=== PATIENT | female | born 1970 | race Caucasian/White ===

== ENCOUNTER 2018-11-03 15:07 | Inpatient (IN) ==
--- NOTE | 2018-11-03 15:20 | Emergency Department Note ---
Disposition Clinical Impression: Abscess of right upper extremity Postoperative infection Qualifiers: Encounter type: initial encounter Postoperative infection type: unspecified type Qualified Code(s): T81.40XA - Infection following a procedure, unspecified, initial encounter Disposition: Admitted As Inpatient Condition: Good Referrals: Zenon Baxter DO [Primary Care Provider] - Forms: ED Satisfaction Letter Time of Disposition: 17:06 General Adult HPI - General Chief complaint: ED Recheck/Abnormal Lab/Rx Stated complaint: RUE surgical complication Time Seen by Provider: 11/03/18 15:10 Source: patient Limitations: no limitations - History of Present Illness HPI Narrative: 49-year-old female with no significant past medical history status post pinning of a right elbow dislocation approximately 4 days ago by orthopedic surgery, discharged home on Levaquin, noting increased swelling and pain of her right upper extremity. Patient notes dark yellow exudate draining from the wound this morning. Patient called orthopedic surgeon was told to follow-up in the ER for further management. Onset (ago): day(s) Location: right, upper extremity Radiation: extremity Pain Scale: 7 Associated symptoms: Reports: denies other symptoms Treatments Prior to Arrival: other (Oxycodone for home use) - Related Data Home Medications Medication Instructions Recorded Confirmed FLUoxetine HCl [Prozac] 40 mg PO DAILY 10/24/17 10/25/18 Losartan/Hydrochlorothiazide 1 tab PO DAILY 10/03/18 10/25/18 [Losartan-Hctz 100-25 mg Tab] Pantoprazole Sodium [Protonix] 20 mg PO BID 10/03/18 10/25/18 Promethazine [Phenergan] 12.5 mg PO Q12HR PRN 10/03/18 10/25/18 Cyanocobalamin (B-12) [Vitamin B12] 1,000 mcg IM WE 10/18/18 10/25/18 Bifidobacterium Infantis [Align] 4 mg PO QAM 10/25/18 10/25/18 HYDROcodone/Acet 5/325 mg [[place] 1 tab PO Q4H PRN 10/25/18 10/25/18 5-325 mg] Norgestimate-Ethinyl Estradiol 1 tab PO DAILY 10/25/18 10/25/18 [Norg-Ee 0.18-0.215-0.25/0.035] levoFLOXacin [Levaquin] 500 mg PO DAILY 11/03/18 11/03/18 Allergies Allergy/AdvReac Type Severity Reaction Status Date / Time No Known Allergies Allergy Verified 10/25/18 11:34 Review of Systems: *See History of Present Illness for more detail Constitutional: Denies: fever, chills HEENT: Denies dysphagia/odynophagia, lymphadenopathy Cardiovascular: Denies: chest pain Respiratory: Denies: dyspnea, cough, hemoptysis Gastrointestinal: Denies: abdominal pain, nausea, vomiting, diarrhea, constipation, hematemesis, melena, hematochezia Genitourinary: Denies: hematuria Musculoskeletal: Denies: back pain, neck pain Integumentary: Denies: rash Neurological: Denies: headache, weakness, lightheadedness/dizziness, numbness, paresthesias, difficulty with ambulation. Endocrine: Denies: fatigue Hematological/Lymphatic: Denies: easy bleeding, easy bruising All systems ED: reviewed and negative except as stated. Review of Systems: As Per HPI Past Medical History - Past Medical History Medical history: Reports: GERD, hypertension Surgical history: Reports: cholecystectomy Psychiatric history: Reports: anxiety - Social History Smoking Status: Never smoker Smokeless Tobacco Status: No Alcohol use: Reports: occasionally Drug use: Reports: none Physical Exam Constitutional: No acute distress, [id number], engaged to conversation, speech is fluid, answers questions appropriately Neuro: GCS 15, no overt focal neurological deficits Head: Atraumatic, normocephalic Eyes: Pupils equal, round and reactive to light, no scleral icterus, no conjunctival injection Neck: Trachea midline without deviation. Anterior neck is supple without swelling. *Chest: Symmetric chest wall rise *Heart: Cardiac rhythm and rate are regular with S1 and S2 , no S3 or S4 appreciated, no murmurs, gallops, rubs, or clicks. *Lungs: Lungs are clear to auscultation bilaterally, without accessory muscle use or prolonged expiratory phase. No wheezes, rhonchi or stridor appreciated. Abdomen: Abdomen is flat, soft to palpation, normal bowel sounds. No abdominal bruit auscultated. Non-distended, non-rigid, no organomegaly, no ascites appreciated. No pulsatile mass, no tenderness or guarding to palpation in all four quadrants, no rebound Extremities: Normal capillary refill without evidence of pedal edema, joint swelling or erythema. Pulses/motor/sensory intact in all 4 extremities. Psychiatric exam: Patient displays a normal affect and mood for the environment. No overt signs of hallucination. Integumentary: warm, dry, intact, normal color. No rash, cyanosis, diaphoresis, erythema, or pallor - General Limitations: no limitations General appearance: alert, in no apparent distress Course Course Narrative: CBC, chemistry, lactate, wound culture, blood culture X-ray, CT scan upper right extremity IV fluids, oxycodone, very Zosyn for management of patient's condition Vital Signs Temperature 98.0 F 11/03/18 15:10 Pulse Rate 96 11/03/18 15:10 Respiratory Rate 16 11/03/18 15:10 Blood Pressure 105/70 11/03/18 15:10 O2 Sat by Pulse Oximetry 100 11/03/18 15:10 Temperature 98.0 F 11/03/18 15:10 Pulse Rate 96 11/03/18 15:10 Respiratory Rate 16 11/03/18 15:10 Blood Pressure 105/70 11/03/18 15:10 O2 Sat by Pulse Oximetry 100 11/03/18 15:10 Oxygen Delivery Oxygen Delivery Room Air Medical Decision Making - MDM Narrative Medical decision making narrative: Laboratory shows no acute pathology, imaging results consistent with a right upper extremity abscess beneath the incision site. Spoke with Dr. Bocanegra from orthopedic surgery who recommends inpatient admission to hospitalist medicine service with orthopedic consultation. Patient will be admitted to hospitalist medicine service for IV antibiotics and further evaluation of abscess formation status post open reduction and internal fixation. Patient verbalizes understanding and agreement this plan. Patient hemodynamically stable time of admission. Dr. Tabor accepting admission. - Lab Data Lab results reviewed: Yes I reviewed the patient's lab results. Result diagrams: 11/03/18 15:19 11/03/18 15:19 Lab Results 11/03/18 11/03/18 11/03/18 Range/Units 15:19 15:19 15:39 WBC 9.4 (4.3-11.1) K/mcL RBC 3.60 L (3.82-4.97) M/mcL Hgb 10.4 L (11.5-15.4) g/dL Hct 32.2 L (35.3-44.9) % MCV 89.4 (83.0-100.0) fL MCH 28.9 (28.0-33.3) pg MCHC 32.3 (31.6-35.5) g/dL RDW 14.5 (11.5-14.5) % Plt Count 313 (140-400) K/mcL MPV 8.8 L (9.4-12.4) fL Immature Gran % 0.4 (0-4) % Seg Neutrophils % 81.8 % Lymphocytes % 11.0 % Monocytes % 6.1 % Eosinophils % 0.5 % Basophils % 0.2 % Neutrophils # 7.7 (1.6-8.9) K/mcL Lymphocytes # 1.0 (0.6-4.6) K/mcL Monocytes # 0.6 (0.0-1.3) K/mcL Eosinophils # 0.1 (0.0-0.6) K/mcL Basophils # 0.0 (0.0-0.2) K/mcL Sodium 139 (136-145) mEq/L Potassium 3.1 L (3.5-5.1) mEq/L Chloride 98 (98-107) mEq/L Carbon Dioxide 28 (23-29) mEq/L BUN 12 (6-20) mg/dL Creatinine 0.70 (0.60-1.20) mg/dL Est GFR ( Amer) > 60 (> 60) Est GFR (Non-Af Amer) > 60 (> 60) BUN/Creatinine Ratio 17 (6-26) Glucose 111 H (70-105) mg/dL Calculated Osmolality 288 (280-300) Lactic Acid 1.2 (0.5-2.2) mmol/L Calcium 8.7 (8.6-10.3) mg/dL
[2018-11-03] MEDS ORDERED: 0.9 % Sodium Chloride 1,000 ML IVC ONE (15:27)
[2018-11-03] MEDS ORDERED: *HR* OxyCODONE/APAP 5/325 TABLET PO ONE (15:29)
[2018-11-03 15:52] LABS: Basophils % 0.2 %; Eosinophils # 0.1 K/mcL (0.0-0.6); Eosinophils % 0.5 %; Hematocrit 32.2 % (35.3-44.9); Hemoglobin 10.4 g/dL (11.5-15.4); Immature Granulocytes % 0.4 % (0-4); Mean Corpuscular HGB Conc 32.3 g/dL (31.6-35.5); Mean Corpuscular Hemoglobin 28.9 pg (28.0-33.3); Mean Corpuscular Volume 89.4 fL (83.0-100.0); Mean Platelet Volume 8.8 fL (9.4-12.4); Monocytes # 0.6 K/mcL (0.0-1.3); Monocytes % 6.1 %; Neutrophils # 7.7 K/mcL (1.6-8.9); Platelet Count 313 K/mcL (140-400); Red Cell Distribution Width 14.5 % (11.5-14.5); Segmented Neutrophils % 81.8 %; White Blood Count 9.4 K/mcL (4.3-11.1)
[2018-11-03] MEDS ORDERED: Piperacillin/Tazobactam 3.375 GM in 0.9 % Sodium Chloride Mini Bag 100 ML IVPB ONE (15:56)
[2018-11-03 16:12] LABS: BUN/Creatinine Ratio 17 (6-26); Blood Urea Nitrogen 12 mg/dL (6-20); Calcium 8.7 mg/dL (8.6-10.3); Carbon Dioxide 28 mEq/L (23-29); Chloride 98 mEq/L (98-107); Glucose 111 mg/dL (70-105); Osmolality,Calculated 288 (280-300); Potassium 3.1 mEq/L (3.5-5.1); Sodium 139 mEq/L (136-145); eGFR For African Americans > 60 (> 60); eGFR For Non-African Americans > 60 (> 60)
--- NOTE | 2018-11-03 17:09 | Emergency Department Note ---
Disposition Clinical Impression: Abscess of right upper extremity Postoperative infection Qualifiers: Encounter type: initial encounter Postoperative infection type: unspecified type Qualified Code(s): T81.40XA - Infection following a procedure, unspecified, initial encounter Disposition: Admitted As Inpatient Condition: Good Referrals: Zenon Baxter DO [Primary Care Provider] - Forms: ED Satisfaction Letter Time of Disposition: 17:09 General Adult HPI - General Chief complaint: ED Recheck/Abnormal Lab/Rx Stated complaint: RUE surgical complication Time Seen by Provider: 11/03/18 15:10 Source: patient Limitations: no limitations - History of Present Illness Location: right, upper extremity Pain Scale: 7 Associated symptoms: Reports: denies other symptoms Treatments Prior to Arrival: other (Oxycodone for home use) - Related Data Home Medications Medication Instructions Recorded Confirmed FLUoxetine HCl [Prozac] 40 mg PO DAILY 10/24/17 11/03/18 Losartan/Hydrochlorothiazide 1 tab PO DAILY 10/03/18 11/03/18 [Losartan-Hctz 100-25 mg Tab] Pantoprazole Sodium [Protonix] 20 mg PO BID 10/03/18 11/03/18 Promethazine [Phenergan] 12.5 mg PO Q12HR PRN 10/03/18 11/03/18 Cyanocobalamin (B-12) [Vitamin B12] 1,000 mcg IM WE 10/18/18 11/03/18 Bifidobacterium Infantis [Align] 4 mg PO QAM 10/25/18 11/03/18 HYDROcodone/Acet 5/325 mg [[place] 1 tab PO Q4H PRN 10/25/18 11/03/18 5-325 mg] Norgestimate-Ethinyl Estradiol 1 tab PO DAILY 10/25/18 11/03/18 [Norg-Ee 0.18-0.215-0.25/0.035] levoFLOXacin [Levaquin] 500 mg PO DAILY 11/03/18 11/03/18 Allergies Allergy/AdvReac Type Severity Reaction Status Date / Time No Known Allergies Allergy Verified 10/25/18 11:34 Past Medical History - Past Medical History Medical history: Reports: GERD, hypertension Surgical history: Reports: cholecystectomy Psychiatric history: Reports: anxiety - Social History Smoking Status: Never smoker Smokeless Tobacco Status: No Alcohol use: Reports: occasionally Drug use: Reports: none Physical Exam - General Limitations: no limitations General appearance: alert, in no apparent distress Course Vital Signs Temperature 98.0 F 11/03/18 15:10 Pulse Rate 96 11/03/18 15:10 Respiratory Rate 16 11/03/18 15:10 Blood Pressure 105/70 11/03/18 15:10 O2 Sat by Pulse Oximetry 100 11/03/18 15:10 Temperature 98.0 F 11/03/18 15:10 Pulse Rate 96 11/03/18 15:10 Respiratory Rate 16 11/03/18 15:10 Blood Pressure 105/70 11/03/18 15:10 O2 Sat by Pulse Oximetry 100 11/03/18 15:10 Oxygen Delivery Oxygen Delivery Room Air Medical Decision Making - Lab Data Result diagrams: 11/03/18 15:19 11/03/18 15:19 Lab Results 11/03/18 11/03/18 11/03/18 Range/Units 15:19 15:19 15:39 WBC 9.4 (4.3-11.1) K/mcL RBC 3.60 L (3.82-4.97) M/mcL Hgb 10.4 L (11.5-15.4) g/dL Hct 32.2 L (35.3-44.9) % MCV 89.4 (83.0-100.0) fL MCH 28.9 (28.0-33.3) pg MCHC 32.3 (31.6-35.5) g/dL RDW 14.5 (11.5-14.5) % Plt Count 313 (140-400) K/mcL MPV 8.8 L (9.4-12.4) fL Immature Gran % 0.4 (0-4) % Seg Neutrophils % 81.8 % Lymphocytes % 11.0 % Monocytes % 6.1 % Eosinophils % 0.5 % Basophils % 0.2 % Neutrophils # 7.7 (1.6-8.9) K/mcL Lymphocytes # 1.0 (0.6-4.6) K/mcL Monocytes # 0.6 (0.0-1.3) K/mcL Eosinophils # 0.1 (0.0-0.6) K/mcL Basophils # 0.0 (0.0-0.2) K/mcL Sodium 139 (136-145) mEq/L Potassium 3.1 L (3.5-5.1) mEq/L Chloride 98 (98-107) mEq/L Carbon Dioxide 28 (23-29) mEq/L BUN 12 (6-20) mg/dL Creatinine 0.70 (0.60-1.20) mg/dL Est GFR ( Amer) > 60 (> 60) Est GFR (Non-Af Amer) > 60 (> 60) BUN/Creatinine Ratio 17 (6-26) Glucose 111 H (70-105) mg/dL Calculated Osmolality 288 (280-300) Lactic Acid 1.2 (0.5-2.2) mmol/L Calcium 8.7 (8.6-10.3) mg/dL Attestation Statement - Attestation Attestation: I examined this patient and my medical decision-making was reviewed with the Resident Physician. I agree with the documented findings, disposition and treatment plan as described except to the extent set forth below. 47 year old female presents to the ED with complaints of right arm cellulitis s/p post srugical radial head reduction on 10/25. Patinet has bene on levaquin for the past day or so and patient states that the swelling is worsening and the drainage has increased. CT shows that there is a abscess formation verses cellulitis of hit ssubq tissue. We have othewrise discussed case with Dr. Huerta, [facility] consultant ortho, who has recommedned admission ot medicine with consutl to ortho. we have started vanco and zosyn for therapy, IVF and pain control.
[2018-11-03] MEDS ORDERED: Mag Hydrox/Al Hydrox/Simeth 30 ML UDC PO PRN (17:40)
[2018-11-03] MEDS ORDERED: Acetaminophen 325 MG TABLET PO PRN (17:40)
[2018-11-03] MEDS ORDERED: MOM Conc 10 ML UD.LIQ PO PRN (17:40)
[2018-11-03] MEDS ORDERED: *HR* Promethazine 25 MG/ML VIAL IVP PRN (17:40)
[2018-11-03] MEDS ORDERED: Ondansetron 4 MG/2 ML VIAL IVP PRN (17:40)
[2018-11-03] MEDS ORDERED: Naloxone 0.4 MG/ML INJ IVP PRN (17:40)
--- NOTE | 2018-11-03 17:48 | Internal Med History&Physical ---
Date of Encounter: 11/03/18 Time of Encounter: 17:45 Internal Medicine - H&P: HPI Admitted From: Home Plans for Post Hospital Care: Home History of present illness: Ms. Deng is a 47 year old female with past medical history of hypertension, depression, vitamin B12 deficiency, and recent right elbow trauma/fracture status post open reduction internal fixation presented with right upper arm swelling with yellowish drainage. She suffered a mechanical fall about 4 days ago which resulted in right arm fracture. She underwent an open reduction with internal fixation by orthopedic surgery and then was discharged home with oral antibiotics Levaquin. Patient noticed that her right elbow was getting progressively swelling and is starting to have yellowish drainage today, orthopedics was called by patient and his she was instructed to go to the ER for further evaluation. In the ER, patient vital signs were stable, she was afebrile, labs were unremarkable. A CT of right upper arm showed a possible abscess, she received IV Zosyn and vancomycin. She will be admitted as inpatient for further evaluation and management. CODE STATUS discussed with patient, she wishes to be full code. Past Med Surg Social Fam HX - Past Medical History Medical history: GERD, hypertension Psychiatric history: anxiety - Past Surgical History Surgical History: cholecystectomy Additional surgical history: cholangogram, right elbow surgery - Social History Smoking Status: Never smoker Smokeless Tobacco Status: No Alcohol use: occasionally Drug use: none Internal Medicine - H&P: Meds FLUoxetine HCl [Prozac] 40 mg PO DAILY 10/24/17 [History] Losartan/Hydrochlorothiazide [Losartan-Hctz 100-25 mg Tab] 1 tab PO DAILY 10/03/18 [History] Pantoprazole Sodium [Protonix] 20 mg PO BID 10/03/18 [History] Promethazine [Phenergan] 12.5 mg PO Q12HR PRN 10/03/18 [History] Cyanocobalamin (B-12) [Vitamin B12] 1,000 mcg IM WE 10/18/18 [History] Bifidobacterium Infantis [Align] 4 mg PO QAM 10/25/18 [History] HYDROcodone/Acet 5/325 mg [[place] 5-325 mg] 1 tab PO Q4H PRN 10/25/18 [History] Norgestimate-Ethinyl Estradiol [Norg-Ee 0.18-0.215-0.25/0.035] 1 tab PO DAILY 10/25/18 [History] levoFLOXacin [Levaquin] 500 mg PO DAILY 11/03/18 [History] Allergy/AdvReac Type Severity Reaction Status Date / Time No Known Allergies Allergy Verified 10/25/18 11:34 All Systems PM: A 10-system review of systems was performed and is negative for pertinent findings except as documented above in the HPI. Review of systems: REVIEW OF SYSTEMS: CONSTITUTIONAL: No weight loss, fever, chills, weakness or fatigue. HEENT: Eyes: No visual loss, blurred vision, double vision or yellow sclerae. Ears, Nose, Throat: No hearing loss, sneezing, congestion, runny nose or sore throat. SKIN: No rash or itching. CARDIOVASCULAR: No chest pain, chest pressure or chest discomfort. No palpitations or edema. RESPIRATORY: No shortness of breath, cough or sputum. GASTROINTESTINAL: No anorexia, nausea, vomiting or diarrhea. No abdominal pain or blood. GENITOURINARY: No dysuria, urgency, or frequency. NEUROLOGICAL: No headache, dizziness, syncope, paralysis, ataxia, numbness or tingling in the extremities. No change in bowel or bladder control. MUSCULOSKELETAL: see HPI. HEMATOLOGIC: No anemia, bleeding or bruising. LYMPHATICS: No enlarged nodes. No history of splenectomy. PSYCHIATRIC: No history of depression or anxiety. ENDOCRINOLOGIC: No reports of sweating, cold or heat intolerance. No polyuria or polydipsia. - Constitutional Vitals: Temp Pulse Resp BP Pulse Ox 98.3 F 84 20 113/74 97 11/03/18 17:08 11/03/18 17:08 11/03/18 17:08 11/03/18 17:08 11/03/18 17:08 General appearance: Present: A&O X 3 Exam: PHYSICAL EXAMINATION: GENERAL APPEARANCE: The patient is alert, oriented and in no acute distress. HEENT: Head is normocephalic. The sinuses are nontender. Pupils are equal and reactive. The nares are patent. Oropharynx clear without lesions. NECK: Supple without lymphadenopathy. HEART: Regular rate and rhythm. LUNGS: No crackles or wheezes are heard. ABDOMEN: Soft, nontender, nondistended with good bowel sounds heard. Inguinal area is normal. EXTREMITIES: right upper arm covered with dressing. NEUROLOGICAL: Gross nonfocal. SKIN: Warm and dry without any rash. Internal Med - H&P Results - Labs CBC & Chem 7: 11/03/18 15:19 11/03/18 15:19 Labs: Short CBC 11/03/18 Range/Units 15:19 WBC 9.4 (4.3-11.1) K/mcL Hgb 10.4 L (11.5-15.4) g/dL Hct 32.2 L (35.3-44.9) % Plt Count 313 (140-400) K/mcL Neutrophils # 7.7 (1.6-8.9) K/mcL BMP 11/03/18 15:19 Sodium 139 Potassium 3.1 L Chloride 98 Carbon Dioxide 28 BUN 12 Creatinine 0.70 Glucose 111 H Calcium 8.7 - Impressions ITS Impressions Elbow X-Ray 11/03/18 15:19 IMPRESSION: Soft tissue swelling without evidence of osteomyelitis, status post ORIF. D/ / Олег Bills MD / Олег Bills MD Interpreting Provider: Олег Bills MD Upper Extremity CT 11/03/18 15:28 IMPRESSION: 1. 11.9 x 3.5 x 2.4 cm area of confluent edema versus developing fluid collection in the posteromedial subcutaneous fat with an abscess not excluded. Adjacent fat stranding compatible cellulitis versus sterile edema. 2. Status post ORIF of the proximal ulna with a stabilization apparatus in the medial humeral condyle without complication. 3. Small osseous fragments in the anterior joint space. D/ / Zuhair Chowdary MD / Zuhair Chowdary MD Interpreting Provider: Zuhair Chowdary MD - Assessment and Plan (1) Abscess of right upper extremity Current Visit: Yes Status: Acute Assessment and plan: 47-year-old female with recent right upper arm, status post ORIF presented with right elbow abscess. Received IV Zosyn and vancomycin at the ED. Blood culture and wound culture were obtained. We will continue current antibiotics. Orthopedics consult. (2) Hypertension Current Visit: No Status: Chronic Assessment and plan: Blood pressure well controlled, continue home medication. Qualifiers: Hypertension type: essential hypertension Qualified Code(s): I10 - Essential (primary) hypertension (3) Depressed Current Visit: No Status: Chronic Assessment and plan: Mood stable, continue home medication. Qualifiers: Depression Type: unspecified Qualified Code(s): F32.9 - Major depressive disorder, single episode, unspecified (4) DVT prophylaxis Current Visit: Yes Status: Acute Assessment and plan: Heparin subcutaneous - Time Spent With Patient Total time spent is greater than 50% in coordination of care (as documented) at patient's floor/unit and/or counseling patient: Greater than 35 minutes
[2018-11-03] MEDS: *HR* Heparin 5,000 UNIT/ML VIAL SQ SCH (20:24)
[2018-11-03] MEDS: *HR* HYDROcodone/Acet 5/325 mg TABLET PO PRN (20:24)
[2018-11-03] MEDS: Piperacillin/Tazobactam 3.375 GM in 0.9 % Sodium Chloride Mini Bag 100 ML IVPB SCH (23:35)
[2018-11-04] MEDS: *HR* HYDROcodone/Acet 5/325 mg TABLET PO PRN ×4 (00:35→19:48)
[2018-11-04] MEDS: *HR* Heparin 5,000 UNIT/ML VIAL SQ SCH ×2 (06:11→16:06)
[2018-11-04 06:19] LABS: Basophils % 0.2 %; Eosinophils # 0.1 K/mcL (0.0-0.6); Eosinophils % 0.8 %; Hemoglobin 10.6 g/dL (11.5-15.4); Immature Granulocytes % 0.3 % (0-4); Lymphocytes # 1.8 K/mcL (0.6-4.6); Mean Corpuscular HGB Conc 32.1 g/dL (31.6-35.5); Mean Corpuscular Hemoglobin 29.1 pg (28.0-33.3); Mean Corpuscular Volume 90.7 fL (83.0-100.0); Mean Platelet Volume 9.4 fL (9.4-12.4); Monocytes # 0.5 K/mcL (0.0-1.3); Monocytes % 6.2 %; Neutrophils # 6.3 K/mcL (1.6-8.9); Platelet Count 350 K/mcL (140-400); Red Blood Count 3.64 M/mcL (3.82-4.97); Red Cell Distribution Width 14.6 % (11.5-14.5); Segmented Neutrophils % 71.5 %; White Blood Count 8.8 K/mcL (4.3-11.1)
[2018-11-04 06:35] LABS: BUN/Creatinine Ratio 13 (6-26); Blood Urea Nitrogen 8 mg/dL (6-20); Calcium 8.4 mg/dL (8.6-10.3); Carbon Dioxide 27 mEq/L (23-29); Chloride 99 mEq/L (98-107); Glucose 96 mg/dL (70-105); Osmolality,Calculated 286 (280-300); Potassium 3.1 mEq/L (3.5-5.1); Sodium 139 mEq/L (136-145); eGFR For African Americans > 60 (> 60); eGFR For Non-African Americans > 60 (> 60)
[2018-11-04] MEDS: Piperacillin/Tazobactam 3.375 GM in 0.9 % Sodium Chloride Mini Bag 100 ML IVPB SCH ×2 (08:27→15:37)
[2018-11-04] MEDS: traMADol 50 MG TABLET PO PRN ×2 (08:36→15:37)
[2018-11-04] MEDS ORDERED: (Bifidobacterium Infantis [Align] 4 MG) PO SCH (09:00)
[2018-11-04] MEDS ORDERED: NON-FORMULARY MEDICATION 1 EACH EACH (Losartan/Hydrochlorothiazide [Losartan-Hctz 100-25 M PO SCH (09:00)
[2018-11-04] MEDS ORDERED: Losartan/HCTZ 50-12.5 TABLET PO SCH (09:00)
[2018-11-04] MEDS ORDERED: NORGESTIMATE ETHINYL ESTRADIOL PO SCH (09:00)
[2018-11-04] MEDS ORDERED: FLUoxetine 20 MG CAPSULE PO SCH (09:00)
--- NOTE | 2018-11-04 10:52 | Internal Med Progress Note ---
Hospitalist Progress Note - Encounter Date of Encounter: 11/04/18 Time of Encounter: 10:49 - Subjective Interval History: Pt seen and examined in the room. Right arm still having large amount of yellowish drainage. No fever, chills, or night sweats. - Exam Vitals: Temp Pulse Resp BP Pulse Ox 98.6 F 88 16 134/85 97 11/04/18 07:03 11/04/18 07:03 11/04/18 07:03 11/04/18 07:03 11/04/18 07:03 Exam: PHYSICAL EXAMINATION: GENERAL APPEARANCE: The patient is alert, oriented and in no acute distress. HEENT: Head is normocephalic. The sinuses are nontender. Pupils are equal and reactive. The nares are patent. Oropharynx clear without lesions. NECK: Supple without lymphadenopathy. HEART: Regular rate and rhythm. LUNGS: No crackles or wheezes are heard. ABDOMEN: Soft, nontender, nondistended with good bowel sounds heard. Inguinal area is normal. EXTREMITIES: right upper arm covered with dressing. NEUROLOGICAL: Gross nonfocal. SKIN: Warm and dry without any rash. - Assessment and Plan (1) Abscess of right upper extremity Current Visit: Yes Status: Acute Assessment and Plan: 11/03 47-year-old female with recent right upper arm, status post ORIF presented with right elbow abscess. Received IV Zosyn and vancomycin at the ED. Blood culture and wound culture were obtained. We will continue current antibiotics. Orthopedics consult. 11/04 Wound cx pending. Doppler ot right arm no DVT. Continue IV abx with zosyn and vanco. Orthopedics following. (2) Hypertension Current Visit: No Status: Chronic Assessment and Plan: Blood pressure well controlled, continue home medication. (3) Depressed Current Visit: No Status: Chronic Assessment and Plan: Mood stable, continue home medication. (4) DVT prophylaxis Current Visit: Yes Status: Acute Assessment and Plan: Heparin subcutaneous - Time Spent with Patient Total time spent is greater than 50% in coordination of care (as documented) at patient's floor/unit and/or counseling patient: Greater than 35 minutes Plan of Care Discussed with: patient Internal Medicine: Result - Labs CBC & Chem 7: 11/04/18 05:26 11/04/18 05:26 Labs: Short CBC 11/03/18 11/04/18 Range/Units 15:19 05:26 WBC 9.4 8.8 (4.3-11.1) K/mcL Hgb 10.4 L 10.6 L (11.5-15.4) g/dL Hct 32.2 L 33.0 L (35.3-44.9) % Plt Count 313 350 (140-400) K/mcL Neutrophils # 7.7 6.3 (1.6-8.9) K/mcL BMP 11/03/18 11/04/18 15:19 05:26 Sodium 139 139 Potassium 3.1 L 3.1 L Chloride 98 99 Carbon Dioxide 28 27 BUN 12 8 Creatinine 0.70 0.64 Glucose 111 H 96 Calcium 8.7 8.4 L - Impressions Impressions Elbow X-Ray 11/03/18 15:19 IMPRESSION: Soft tissue swelling without evidence of osteomyelitis, status post ORIF. D/ / Олег Bills MD / Олег Bills MD Interpreting Provider: Олег Bills MD Upper Extremity CT 11/03/18 15:28 IMPRESSION: 1. 11.9 x 3.5 x 2.4 cm area of confluent edema versus developing fluid collection in the posteromedial subcutaneous fat with an abscess not excluded. Adjacent fat stranding compatible cellulitis versus sterile edema. 2. Status post ORIF of the proximal ulna with a stabilization apparatus in the medial humeral condyle without complication. 3. Small osseous fragments in the anterior joint space. D/ / Zuhair Chowdary MD / Zuhair Chowdary MD Interpreting Provider: Zuhair Chowdary MD Consult Discharge Plan - Plan Referrals: Zenon Baxter DO [Primary Care Provider] - (2) Hypertension Qualifiers: Hypertension type: essential hypertension Qualified Code(s): I10 - Essential (primary) hypertension (3) Depressed Qualifiers: Depression Type: unspecified Qualified Code(s): F32.9 - Major depressive disorder, single episode, unspecified
[2018-11-04 11:06] LABS: C-Reactive Protein 172 mg/L (Less than 10)
--- NOTE | 2018-11-04 13:04 | Orthopedic Consult Note ---
Date of Encounter: 11/04/18 Time of Encounter: 12:00 Assessment and Plan (1) Postoperative infection Current Visit: Yes Status: Acute Reviewed CT scan of elbow with Dr. Fall showing fluid collection to posterior elbow. Doppler negative for DVT. Plan for right elbow washout today 11/04/[address] Fall. I reviewed the procedure as well as r/b/a and she expressed understanding. consent was signed and given to patient's nurse. NPO now - she did eat breakfast around 9am and was drinking water through roughly 11:30. Reapplied dry gauze/abd dressings over incision until surgery. Continue IV abx per primary team. Ice and elevate RUE. Qualifiers: Encounter type: initial encounter Postoperative infection type: unspecified type Qualified Code(s): T81.40XA - Infection following a procedure, unspecified, initial encounter History of Present Illness Chief complaint: right elbow swelling and drainage HPI: Ms. Deng is a 47 year old female who is status post Right elbow open treatment of acute dislocation with repair of lateral ulnar collateral ligament, and application of hinged multiplanar external fixator"open treatment of acute dislocation with repair of lateral ulnar collateral ligament, and application of hinged multiplanar external fixator. 10/25/18. She was seen in the [facility] office on 11/01 and noted to have erythema to posterior elbow with swelling but no erythema directly surrounding the incision and no drainage at that time. She had labwork performed showing a normal WBC but elevated ESR/CRP. She was started on levoquin. Patient states that night she started to not feel well, felt a little better the next day but then was running a fever around 102 at home and then yesterday started to notice new drainage that was "thicker blood" at first and is now watery. Denies any pus drainage. She also developed a blister to elbow which she first noticed yesterday as well. She came to the ER last night and was admitted for IV abx. She denies any numbness or tingling to extremity. She has had nausea since surgery, no vomiting. Denies any chest pain or SOB. She is right hand dominant. She states she did eat breakfast around 9:00 am this morning and has last drink of water roughly 11:30am this morning. Past Med Surg Social Fam HX - Past Medical History Medical history: GERD, hypertension, other Additional medical history: dizziness, chronic nausea, Vitamin B12 deficiency Psychiatric history: anxiety, depression - Past Surgical History Surgical History: cholecystectomy Additional surgical history: cholangogram, right elbow surgery - Social History Smoking Status: Never smoker Smokeless Tobacco Status: No Alcohol use: occasionally Drug use: none Medications and Allergies FLUoxetine HCl [Prozac] 20 mg PO DAILY 10/24/17 [History] Losartan/Hydrochlorothiazide [Losartan-Hctz 100-25 mg Tab] 1 tab PO DAILY 10/03/18 [History] Pantoprazole Sodium [Protonix] 20 mg PO BID 10/03/18 [History] Promethazine [Phenergan] 12.5 mg PO Q12HR PRN 10/03/18 [History] Cyanocobalamin (B-12) [Vitamin B12] 1,000 mcg IM WE 10/18/18 [History] Bifidobacterium Infantis [Align] 4 mg PO QAM 10/25/18 [History] HYDROcodone/Acet 5/325 mg [[place] [facility] 5-325 mg] 1 tab PO Q4H PRN 10/25/18 [History] Norgestimate-Ethinyl Estradiol [Norg-Ee 0.18-0.215-0.25/0.035] 1 tab PO DAILY 10/25/18 [History] levoFLOXacin [Levaquin] 500 mg PO DAILY 11/03/18 [History] Hyoscyamine Sulfate 0.125 mg PO Q6H PRN 11/04/18 [History] Ibuprofen [Motrin] 600 mg PO Q6H PRN 11/04/18 [History] Oxycodone HCl 5 mg PO Q6H PRN 11/04/18 [History] Scopolamine Patch [Transderm-Scop] 1.5 mg TD Q72H PRN 11/04/18 [History] Allergy/AdvReac Type Severity Reaction Status Date / Time No Known Allergies Allergy Verified 11/04/18 16:48 All Systems Reviewed: The remainder of the systems were reviewed and are negative - Constitutional Constitutional: as per HPI - Cardiovascular Cardiovascular: as per HPI - Respiratory Respiratory: as per HPI - Musculoskeletal Musculoskeletal: as per HPI Physical Exam - Constitutional Vitals: Temp Pulse Resp BP Pulse Ox 98.4 F 79 17 131/84 97 11/04/18 11:48 11/04/18 11:48 11/04/18 11:48 11/04/18 11:48 11/04/18 11:48 - Elbow right Location of pain elbow: posterior (There is moderate erythema and swelling noted to the posterior and lateral elbow into forearm. Incision has zipline dressing intact with no gapping to incision, no active drainage but does appear wet. There is a fluid filled blister noted just posterior to the incision. moderate tenderness to palpation of the elbow. elbow ROM limited. full motion of hand, sensation intact distally) Results - Labs Result Diagrams: 11/04/18 05:26 11/04/18 05:26 Labs: Abnormal lab results RBC 3.64 M/mcL (3.82-4.97) L 11/04/18 05:26 Hgb 10.6 g/dL (11.5-15.4) L 11/04/18 05:26 Hct 33.0 % (35.3-44.9) L 11/04/18 05:26 RDW 14.6 % (11.5-14.5) H 11/04/18 05:26 MPV 8.8 fL (9.4-12.4) L 11/03/18 15:19 ESR 114 mm/hr (0-15) H 11/04/18 05:26 Potassium 3.1 mEq/L (3.5-5.1) L 11/04/18 05:26 Glucose 111 mg/dL (70-105) H 11/03/18 15:19 Calcium 8.4 mg/dL (8.6-10.3) L 11/04/18 05:26 172 mg/L (Less than 10) H 11/04/18 05:26 H & H 11/03/18 11/04/18 Range/Units 15:19 05:26 Hgb 10.4 L 10.6 L (11.5-15.4) g/dL Hct 32.2 L 33.0 L (35.3-44.9) % All other labs normal. - Diagnostic results Elbow CT: report reviewed, image reviewed Consult Discharge Plan - Plan Referrals: Zenon Baxter DO [Primary Care Provider] - - Attending Attestation Case and plan of care discussed with supervising physician, Dr. Fall, who was available for all aspects of care.
[2018-11-04] MEDS ORDERED: *HR* Propofol 200 MG/20 ML VIAL IVP ONE (17:16)
[2018-11-04] MEDS ORDERED: *HR* FentaNYL (PF) 100 MCG/2 ML VIAL ONE (17:16)
[2018-11-04] MEDS ORDERED: *HR* Midazolam HCl 2 MG/2 ML VIAL ONE (17:16)
[2018-11-04] MEDS ORDERED: *HR* Succinylcholine 200 MG/10 ML VIAL IVP ONE (17:19)
[2018-11-04] MEDS ORDERED: Lidocaine -MPF 2% 2 ML VIAL ONE (17:19)
--- NOTE | 2018-11-04 17:20 | Anesthesia Evaluation PreOp ---
Date of Encounter: 11/04/18 Time of Encounter: 17:18 - Past History Planned Operation: Right elbow I&D Cardiac History: HTN Pulmonary History: Denies Any Significant HX [employer] History: Denies Any Significant HX Other Medical History: GERD, Other (anxiety depression) Anesthesia History: No Prior Anesthetic Complications, Past Anesthesia Alcohol Use: occasionally Drug use: none Medications and Allergies FLUoxetine HCl [Prozac] 20 mg PO DAILY 10/24/17 [History] Losartan/Hydrochlorothiazide [Losartan-Hctz 100-25 mg Tab] 1 tab PO DAILY 10/03/18 [History] Pantoprazole Sodium [Protonix] 20 mg PO BID 10/03/18 [History] Promethazine [Phenergan] 12.5 mg PO Q12HR PRN 10/03/18 [History] Cyanocobalamin (B-12) [Vitamin B12] 1,000 mcg IM WE 10/18/18 [History] Bifidobacterium Infantis [Align] 4 mg PO QAM 10/25/18 [History] HYDROcodone/Acet 5/325 mg [[place] 5-325 mg] 1 tab PO Q4H PRN 10/25/18 [History] Norgestimate-Ethinyl Estradiol [Norg-Ee 0.18-0.215-0.25/0.035] 1 tab PO DAILY 10/25/18 [History] levoFLOXacin [Levaquin] 500 mg PO DAILY 11/03/18 [History] Hyoscyamine Sulfate 0.125 mg PO Q6H PRN 11/04/18 [History] Ibuprofen [Motrin] 600 mg PO Q6H PRN 11/04/18 [History] Oxycodone HCl 5 mg PO Q6H PRN 11/04/18 [History] Scopolamine Patch [Transderm-Scop] 1.5 mg TD Q72H PRN 11/04/18 [History] Allergy/AdvReac Type Severity Reaction Status Date / Time No Known Allergies Allergy Verified 11/04/18 16:48 - Meds/Allergy Pre-op Review Medications Reviewed: Yes Allergies Reviewed: Yes Beta Blockers on Current Med List: No Anesthesia Results - Labs 11/04/18 05:26 11/04/18 05:26 TEST PENDING Anesthesia Exam Vital Signs/O2 Sat, Most Current Temp Pulse Resp BP Pulse Ox 97.8 F 78 16 154/94 98 11/04/18 15:06 11/04/18 15:06 11/04/18 15:06 11/04/18 15:06 11/04/18 15:06 Weight: 88 kg - BMI 32 NPO (# of Hours): >8 - HEENT Mallampati: I Teeth: Normal - Cardiac Rhythm: Regular - Pulmonary Breath Sounds: bilateral Clear Anesthesia Assess/Plan ASA Score: 2 Anesthetic Plan: General Monitoring Plan: Standard Monitors Recovery Plan: PACU
[2018-11-04] MEDS ORDERED: *HR* Promethazine 25 MG/ML VIAL IVP PRN ×3 (18:18→21:12)
[2018-11-04] MEDS ORDERED: traMADol 50 MG TABLET PO PRN (18:18)
[2018-11-04] MEDS ORDERED: *HR* HYDROmorphone (PF) 1 MG/ML SYRINGE IVP PRN ×2 (18:18→21:12)
[2018-11-04] MEDS ORDERED: Albuterol 2.5 MG/3 ML NEBULIZER IH ONE ×2 (18:18→21:12)
[2018-11-04] MEDS ORDERED: Ondansetron 4 MG/2 ML VIAL IVP ONE ×2 (18:18→21:12)
[2018-11-04] MEDS ORDERED: Ketorolac 30 MG/ML VIAL IVP ONE ×2 (18:18→21:12)
[2018-11-04] MEDS ORDERED: *HR* Meperidine 25 MG/ML SYRINGE IVP PRN ×2 (18:18→21:12)
[2018-11-04] MEDS ORDERED: *HR* HYDROMORPHONE 2 MG/ML VIAL ONE (18:25)
[2018-11-04] MEDS ORDERED: Ethanol\\Acetic Acid\\Na Ace\\Ben 1,000 ML IRRIG.SOLN IR ONE (18:37)
--- NOTE | 2018-11-04 19:26 | Operative Note ---
Date of procedure: 11/04/18 Pre-op diagnosis: Right elbow postoperative wound abscess Post-op diagnosis: other (Right elbow postoperative wound hematoma with possible abscess formation) Procedure: Right elbow incision and drainage of postoperative wound Anesthesia: ANNITA Surgeon: Daniel Fall Was there an social service assistant present: No Estimated blood loss (cc): 50 Tourniquet Time (Minutes): 21 Specimen: Sent to microbiology Condition: stable Disposition: PACU Procedure in Detail: Indication for surgery. The patient underwent a reconstruction/unstable right elbow dislocation just over 1 week ago. The patient was having significant pain and swelling. The patient was now she started on Levaquin on Sunday, however: On Sunday elbow started draining. She was admitted through the emergency room last night. The patient has seepage from the incision. She was indicated for a formal I&D. Procedure: The patient was brought to the operating room and placed on table in supine position with the right upper extremity hand table. The patient underwent gene ral anesthesia. A tourniquet was placed on his right arm close to the axilla, and the right upper extremity was then prepped and draped in usual sterile fashion. A timeout was performed. The upper extremity was then elevated, exsanguinated with an Sunil wrap from the fingertips to the mid forearm, and the tourniquet was raised to pressure of 250 mmHg. The posterior lateral incision was opened with a hemostat. There was copious amount of fresh blood and hematoma within the wound. As I continued dissecting deeper, there was a small patch of dirty brown fluid. This could either be pus mixed with the blood or possibly necrotic fat. Cultures were taken for aerobic and anaerobic. The patient was administered IV vancomycin. The wound was copiously irrigated with normal saline. The hardware of the Internal Joint Stabilizer is intact and exposed. The fascia over the extensor common tendon and muscles was noted to be intact. There was no direct communication with the joint. After irrigated with normal saline. We then irrigated with Bactisure followed by normal saline. I then soaked the implants and Irrisept for 1 minute. The tourniquet was let down, and the wound irrigated once again with normal saline. There was continuous mild oozing. A Hemovac with 10-I[place]ic tubing was used. I placed 2 drain tubes exiting distally, and attaching to the one Hemovac bulb. Gelfoam and thrombin was used to stop the oozing. The skin was then closed with 3-0 nylon vertical mattress and simple sutures. Sterile dressings were applied. She was then extubated and taken to the [facility] room stable condition. The patient will continue on IV vancomycin until the deep cultures are back.
--- NOTE | 2018-11-04 19:57 | Anesthesia Evaluation Post Op ---
Date of Encounter: 11/04/18 Time of Encounter: 19:57 - Discharge PostOp Status: Transfer Patient to floor (Patient's vital signs have been reviewed. Patient is stable postoperatively and has adequately recovered from anesthesia. Patient is determined to have stable airway patency and respiratory function including respiratory rate and oxygen saturation. Patient has a stable heart rate, blood pressure and adequate hydration. Patients mental status is acceptable. Patients temperature is appropriate. Pain and nausea are adequately controlled.)
[2018-11-04] MEDS ORDERED: Lactobacillus 1 EACH CAP.SPRINK PO SCH (21:00)
[2018-11-04] MEDS ORDERED: MOM Conc 10 ML UD.LIQ PO PRN (21:12)
[2018-11-04] MEDS ORDERED: Mag Hydrox/Al Hydrox/Simeth 30 ML UDC PO PRN (21:12)
[2018-11-04] MEDS ORDERED: Naloxone 0.4 MG/ML INJ IVP PRN (21:12)
[2018-11-04] MEDS ORDERED: Acetaminophen 325 MG TABLET PO PRN (21:12)
[2018-11-05 05:01] LABS: Basophils % 0.5 %; Eosinophils # 0.1 K/mcL (0.0-0.6); Eosinophils % 1.6 %; Hematocrit 28.3 % (35.3-44.9); Hemoglobin 9.3 g/dL (11.5-15.4); Immature Granulocytes % 0.6 % (0-4); Lymphocytes # 1.4 K/mcL (0.6-4.6); Lymphocytes % 22.8 %; Mean Corpuscular HGB Conc 32.9 g/dL (31.6-35.5); Mean Corpuscular Hemoglobin 28.8 pg (28.0-33.3); Mean Corpuscular Volume 87.6 fL (83.0-100.0); Monocytes # 0.5 K/mcL (0.0-1.3); Monocytes % 7.8 %; Neutrophils # 4.2 K/mcL (1.6-8.9); Platelet Count 306 K/mcL (140-400); Red Blood Count 3.23 M/mcL (3.82-4.97); Red Cell Distribution Width 14.4 % (11.5-14.5); Segmented Neutrophils % 66.7 %; White Blood Count 6.3 K/mcL (4.3-11.1)
[2018-11-05 05:16] LABS: BUN/Creatinine Ratio 14 (6-26); Blood Urea Nitrogen 8 mg/dL (6-20); Calcium 8.2 mg/dL (8.6-10.3); Carbon Dioxide 26 mEq/L (23-29); Chloride 100 mEq/L (98-107); Glucose 93 mg/dL (70-105); Osmolality,Calculated 276 (280-300); Potassium 3.5 mEq/L (3.5-5.1); Sodium 134 mEq/L (136-145); eGFR For African Americans > 60 (> 60); eGFR For Non-African Americans > 60 (> 60)
[2018-11-05] MEDS: Losartan/HCTZ 50-12.5 TABLET PO SCH (08:54)
[2018-11-05] MEDS: NORGESTIMATE ETHINYL ESTRADIOL PO SCH (08:55)
[2018-11-05] MEDS: Lactobacillus 1 EACH CAP.SPRINK PO SCH ×2 (08:55→20:33)
--- NOTE | 2018-11-05 08:55 | Internal Med Progress Note ---
Hospitalist Progress Note - Encounter Date of Encounter: 11/05/18 Time of Encounter: 08:55 - Subjective Interval History: Patient was seen and examined at bedside currently states that pain is controlled-Hemovac in place and draining-discuss treatment plan including current antibiotics and pending wound culture results. - Exam Vitals: Temp Pulse Resp BP Pulse Ox 97.5 F L 75 18 141/79 100 11/05/18 07:37 11/05/18 07:37 11/05/18 07:37 11/05/18 07:37 11/05/18 07:37 Exam: PHYSICAL EXAMINATION: GENERAL APPEARANCE: The patient is alert, oriented and in no acute distress. HEENT: Head is normocephalic. The sinuses are nontender. Pupils are equal and reactive. The nares are patent. Oropharynx clear without lesions. NECK: Supple without lymphadenopathy. HEART: Regular rate and rhythm. LUNGS: No crackles or wheezes are heard. ABDOMEN: Soft, nontender, nondistended with good bowel sounds heard. Inguinal area is normal. EXTREMITIES: right upper arm covered with dressing. -Brisk capillary refill- extremities pink and warm NEUROLOGICAL: Gross nonfocal. SKIN: Warm and dry without any rash. - Assessment and Plan (1) Hypertension Current Visit: No Status: Chronic Assessment and Plan: Blood pressure well controlled, continue home medication. (2) DVT prophylaxis Current Visit: Yes Status: Acute Assessment and Plan: Heparin subcutaneous (3) Abscess of right upper extremity Current Visit: Yes Status: Acute Assessment and Plan: 11/03 47-year-old female with recent right upper arm, status post ORIF presented with right elbow abscess. Received IV Zosyn and vancomycin at the ED. Blood culture and wound culture were obtained. We will continue current antibiotics. Orthopedics consult. 11/04 Wound cx pending. Doppler ot right arm no DVT. Continue IV abx with zosyn and vanco. Orthopedics following. 11/05 Wound cultures pending at this time-continue with current IV antibiotics Zosyn and vancomycin Currently pain is controlled continue with current pain regime Continue to elevate extremity Orthopedic following and appreciate recommendations dressing changes per orthopedic recommendations (4) Depressed Current Visit: No Status: Chronic Assessment and Plan: Mood stable, continue home medication. - Time Spent with Patient Total time spent is greater than 50% in coordination of care (as documented) at patient's floor/unit and/or counseling patient: Internal Medicine: Result - Labs CBC & Chem 7: 11/05/18 04:34 11/05/18 04:34 Labs: Short CBC 11/05/18 Range/Units 04:34 WBC 6.3 (4.3-11.1) K/mcL Hgb 9.3 L (11.5-15.4) g/dL Hct 28.3 L (35.3-44.9) % Plt Count 306 (140-400) K/mcL Neutrophils # 4.2 (1.6-8.9) K/mcL BMP 11/04/18 11/05/18 05:26 04:34 Sodium 139 134 L Potassium 3.1 L 3.5 Chloride 99 100 Carbon Dioxide 27 26 BUN 8 8 Creatinine 0.64 0.56 L Glucose 96 93 Calcium 8.4 L 8.2 L Consult Discharge Plan - Plan Referrals: Zenon Baxter DO [Primary Care Provider] - (1) Hypertension Qualifiers: Hypertension type: essential hypertension Qualified Code(s): I10 - Essential (primary) hypertension (4) Depressed Qualifiers: Depression Type: unspecified Qualified Code(s): F32.9 - Major depressive disorder, single episode, unspecified
[2018-11-05] MEDS: *HR* HYDROcodone/Acet 5/325 mg TABLET PO PRN ×3 (08:59→22:27)
[2018-11-05] MEDS ORDERED: FLUoxetine 20 MG CAPSULE PO SCH (09:00)
[2018-11-05 09:23] LABS: C-Reactive Protein 108 mg/L (Less than 10)
[2018-11-05] MEDS: Ondansetron 4 MG/2 ML VIAL IVP PRN (13:13)
--- NOTE | 2018-11-05 17:19 | Orthopedics Progress Note ---
Date of Encounter: 11/05/18 Time of Encounter: 15:20 - Assessment and Plan (1) Postoperative infection Current Visit: Yes Status: Acute Leave postoperative dressings in place. Hemovac drain - minimal bloody drainage currently. documented 70mL removed toda y. Possibly remove tomorrow if drainage decreases Continue to elevate and ice as needed. Recommend PT/OT eval for ROM, continue NWB to RUE. Cx from ER show staph aureus, pending intraoperative wound cultures. Continue IV abx per primary team. Currently on vancomycin and zosyn 11/04: WBC 8.8, ESR 57, CRP 187 11/05: WBC 6.3, ESR 101, CRP 108 improving Continue to monitor overnight. Qualifiers: Encounter type: initial encounter Postoperative infection type: unspecified type Qualified Code(s): T81.40XA - Infection following a procedure, unspecified, initial encounter Subjective Principal diagnosis: POD#1 s/p right elbow I&D 11/04 Interval history: Patient states the elbow is feeling stiff but overall feeling better. Pain is tolerable. Denies numbness or tingling. Denies any new symptoms or concerns at this time.She states drain has been emptied a coulpe times since surgery so far. Objective Vital signs: Vital Signs Temp Pulse Resp BP Pulse Ox 11/05/18 15:56 98.1 F 78 18 127/81 96 11/05/18 10:55 97.9 F 76 18 109/69 98 11/05/18 07:37 97.5 F L 75 18 141/79 100 11/05/18 03:36 97.6 F 78 16 147/82 97 11/04/18 23:10 98.3 F 76 16 129/78 95 11/04/18 22:10 97.9 F 68 16 126/72 95 11/04/18 21:10 98.1 F 68 16 138/84 95 11/04/18 20:40 97.9 F 69 16 154/88 94 11/04/18 20:10 98.1 F 77 16 171/91 96 11/04/18 19:54 98.4 F 84 20 148/89 97 11/04/18 19:44 88 14 140/90 97 11/04/18 19:34 98 20 135/88 95 11/04/18 19:24 97.5 F L 68 12 129/70 97 Intake and Output 11/05/18 11/05/18 11/05/18 07:59 15:59 23:59 Intake Total 250 / 490 240 / 490 Output Total Balance 200 / 420 220 / 420 Intake: IV Fluids 250 / 250 Vancocin 1,250 MG In 0.9 % 250 / 250 Sodium Chloride 250 ML @ 167 mls/hr IVPB Q12H REPLACED BY [facility] Rx#: [id number] Oral 0 / 240 240 / 240 Output: Wound Drainage Right Elbow Other: Meal Lunch Percent of Meal Consumed 50% # Voids 1 Weight 84.822 kg Patient Weight 11/05/18 23:59 Weight 84.822 kg Incision: clean and dry (dressings intact to RUE with hemovac drain attached. minimal bloody drainage within drain, full motion of hand/fingers, sensation intact distally. ) - Labs CBC & BMP: 11/05/18 04:34 11/05/18 04:34 Labs: Abnormal lab results RBC 3.23 M/mcL (3.82-4.97) L 11/05/18 04:34 Hgb 9.3 g/dL (11.5-15.4) L 11/05/18 04:34 Hct 28.3 % (35.3-44.9) L 11/05/18 04:34 RDW 14.6 % (11.5-14.5) H 11/04/18 05:26 MPV 9.0 fL (9.4-12.4) L 11/05/18 04:34 ESR 101 mm/hr (0-15) H 11/05/18 04:34 Sodium 134 mEq/L (136-145) L 11/05/18 04:34 Potassium 3.1 mEq/L (3.5-5.1) L 11/04/18 05:26 0.56 mg/dL (0.60-1.20) L 11/05/18 04:34 Glucose 111 mg/dL (70-105) H 11/03/18 15:19 276 (280-300) L 11/05/18 04:34 Calcium 8.2 mg/dL (8.6-10.3) L 11/05/18 04:34 108 mg/L (Less than 10) H 11/05/18 04:34 Consult Discharge Plan - Plan Referrals: Zenon Baxter DO [Primary Care Provider] -
[2018-11-06] MEDS: *HR* HYDROcodone/Acet 5/325 mg TABLET PO PRN ×4 (03:23→23:51)
[2018-11-06] MEDS: traMADol 50 MG TABLET PO PRN ×3 (05:13→20:44)
[2018-11-06 05:46] LABS: Basophils % 0.6 %; Eosinophils # 0.1 K/mcL (0.0-0.6); Hematocrit 29.1 % (35.3-44.9); Hemoglobin 9.4 g/dL (11.5-15.4); Immature Granulocytes % 0.7 % (0-4); Lymphocytes # 1.5 K/mcL (0.6-4.6); Mean Corpuscular HGB Conc 32.3 g/dL (31.6-35.5); Mean Corpuscular Hemoglobin 28.7 pg (28.0-33.3); Mean Platelet Volume 9.1 fL (9.4-12.4); Monocytes # 0.7 K/mcL (0.0-1.3); Monocytes % 10.1 %; Neutrophils # 4.5 K/mcL (1.6-8.9); Platelet Count 376 K/mcL (140-400); Red Blood Count 3.27 M/mcL (3.82-4.97); Red Cell Distribution Width 14.2 % (11.5-14.5); Segmented Neutrophils % 64.6 %; White Blood Count 6.9 K/mcL (4.3-11.1)
[2018-11-06 06:06] LABS: BUN/Creatinine Ratio 16 (6-26); Blood Urea Nitrogen 11 mg/dL (6-20); Calcium 8.8 mg/dL (8.6-10.3); Carbon Dioxide 29 mEq/L (23-29); Chloride 100 mEq/L (98-107); Glucose 113 mg/dL (70-105); Osmolality,Calculated 284 (280-300); Potassium 3.7 mEq/L (3.5-5.1); Sodium 137 mEq/L (136-145); eGFR For African Americans > 60 (> 60); eGFR For Non-African Americans > 60 (> 60)
--- NOTE | 2018-11-06 08:50 | Internal Med Progress Note ---
Hospitalist Progress Note - Encounter Date of Encounter: 11/06/18 Time of Encounter: 09:00 - Subjective Interval History: No acute events overnight - Exam Vitals: Temp Pulse Resp BP Pulse Ox 98.0 F 74 16 108/71 97 11/06/18 07:19 11/06/18 07:19 11/06/18 07:19 11/06/18 07:19 11/06/18 07:19 Exam: PHYSICAL EXAMINATION: GENERAL APPEARANCE: The patient is alert, oriented and in no acute distress. HEENT: Head is normocephalic. The sinuses are nontender. Pupils are equal and reactive. The nares are patent. Oropharynx clear without lesions. NECK: Supple without lymphadenopathy. HEART: Regular rate and rhythm. LUNGS: No crackles or wheezes are heard. ABDOMEN: Soft, nontender, nondistended with good bowel sounds heard. Inguinal area is normal. EXTREMITIES: right upper arm covered with dressing. -Brisk capillary refill- extremities pink and warm NEUROLOGICAL: Gross nonfocal. SKIN: Warm and dry without any rash. - Assessment and Plan (1) Abscess of right upper extremity Current Visit: Yes Status: Acute Assessment and Plan: 47-year-old female with recent right upper arm, status post ORIF presented with right elbow abscess. Received IV Zosyn and vancomycin at the ED. Blood culture and wound culture were obtained. Continue vanc and zosyn. Final cultures pending. ID recs appreciated (2) Hypertension Current Visit: Yes Status: Chronic Assessment and Plan: Blood pressure well controlled, continue home medication. (3) Depressed Current Visit: Yes Status: Chronic Assessment and Plan: Mood stable, continue home medication. (4) DVT prophylaxis Current Visit: Yes Status: Acute Assessment and Plan: Heparin subcutaneous - Time Spent with Patient Total time spent is greater than 50% in coordination of care (as documented) at patient's floor/unit and/or counseling patient: Internal Medicine: Result - Labs CBC & Chem 7: 11/06/18 04:35 11/06/18 04:35 Labs: Short CBC 11/06/18 Range/Units 04:35 WBC 6.9 (4.3-11.1) K/mcL Hgb 9.4 L (11.5-15.4) g/dL Hct 29.1 L (35.3-44.9) % Plt Count 376 (140-400) K/mcL Neutrophils # 4.5 (1.6-8.9) K/mcL BMP 11/06/18 04:35 Sodium 137 Potassium 3.7 Chloride 100 Carbon Dioxide 29 BUN 11 Creatinine 0.70 Glucose 113 H Calcium 8.8 Consult Discharge Plan - Plan Referrals: Zenon Baxter DO [Primary Care Provider] - (2) Hypertension Qualifiers: Hypertension type: essential hypertension Qualified Code(s): I10 - Essential (primary) hypertension (3) Depressed Qualifiers: Depression Type: unspecified Qualified Code(s): F32.9 - Major depressive disorder, single episode, unspecified
[2018-11-06] MEDS: Losartan/HCTZ 50-12.5 TABLET PO SCH (09:17)
[2018-11-06] MEDS: FLUoxetine 20 MG CAPSULE PO SCH (09:18)
[2018-11-06] MEDS: NORGESTIMATE ETHINYL ESTRADIOL PO SCH (09:18)
[2018-11-06] MEDS: Lactobacillus 1 EACH CAP.SPRINK PO SCH ×2 (09:18→20:43)
[2018-11-06] MEDS ORDERED: Aminoglycoside Consult 1 EACH MC ONE (12:13)
--- NOTE | 2018-11-06 12:31 | Orthopedics Progress Note ---
Date of Encounter: 11/06/18 Time of Encounter: 12:40 - Assessment and Plan (1) Postoperative infection Current Visit: Yes Status: Acute Leave postoperative dressings in place. Hemovac drain - documented 70mL removed 11/05 and 40ml removed so far today. Dis cussed with Dr. Fall and recommend leaving in an additional day as she has started working with therapy which could increase the drainage. Plan to remove tomorrow if drainage decreases Continue to elevate and ice as needed. Continue PT/OT for ROM as tolerated, continue NWB to RUE. Cx from ER show staph aureus, pending intraoperative wound cultures - gram stain showed Gram+ cocci Since there is internal hardware with plan to leave in place for 3 months will consult ID. I spoke with Marielos Schofield who is agreeable to seeing patient. Currently on vancomycin and zosyn. Will follow ID recommendations for further antibiotic guidance 11/04: WBC 8.8, ESR 57, CRP 187 11/05: WBC 6.3, ESR 101, CRP 108 11/06: WBC 6.9 Continue to monitor overnight. Qualifiers: Encounter type: initial encounter Postoperative infection type: unspecified type Qualified Code(s): T81.40XA - Infection following a procedure, unspecified, initial encounter Subjective Principal diagnosis: POD#2 s/p right elbow I&D 11/04 Interval history: Patient states the elbow is feeling stiff but overall feeling better. She has worked with therapy and feels her motion is getting alittle better. Pain is tolerable. Denies numbness or tingling. Denies any new symptoms or concerns at this time.. Objective Vital signs: Vital Signs Temp Pulse Resp BP Pulse Ox 11/06/18 11:05 97.9 F 86 16 126/83 96 11/06/18 07:19 98.0 F 74 16 108/71 97 11/06/18 03:04 98.3 F 76 15 116/74 97 11/05/18 20:33 97 11/05/18 19:21 98.3 F 81 15 123/75 97 11/05/18 15:56 98.1 F 78 18 127/81 96 Intake and Output 11/05/18 11/06/18 11/06/18 23:59 07:59 15:59 Intake Total 250 / 740 600 / 720 120 / 720 Output Total 0 / 70 20 / 40 20 / 40 Balance 250 / 670 580 / 680 100 / 680 Intake: IV Fluids 250 / 500 600 / 600 Zosyn 3.375 GM In 0.9 % Sodium 100 / 100 Chloride (Mini-Bag +) 100 ML @ 25 mls/hr IVPB Q8HR [facility] Rx#: [id number] Vancocin 1,000 MG In 0.9 % 250 / 250 Sodium Chloride 250 ML @ 167 mls/hr IVPB Q12H [facility] Rx#: [id number] Vancocin 1,250 MG In 0.9 % 250 / 500 250 / 250 Sodium Chloride 250 ML @ 167 mls/hr IVPB Q12H [facility] Rx#: [id number] Oral 0 / 240 0 / 120 120 / 120 Output: Wound Drainage Right Elbow Other: Meal Breakfast Percent of Meal Consumed 50% # Voids 1 1 1 # Bowel Movements 0 0 Weight 84.4 kg Patient Weight 11/06/18 23:59 Weight 84.4 kg Incision: clean and dry (postop dressings left in place with hemovac drain in place and still draining with dark red/brown drainage roughly 10cc noted inside vacuum on exam. Elbow motion roughly 45-90 degrees. full ROM hand/fingers. sensation intact distally.) - Labs CBC & BMP: 11/06/18 04:35 11/06/18 04:35 Labs: Abnormal lab results RBC 3.27 M/mcL (3.82-4.97) L 11/06/18 04:35 Hgb 9.4 g/dL (11.5-15.4) L 11/06/18 04:35 Hct 29.1 % (35.3-44.9) L 11/06/18 04:35 RDW 14.6 % (11.5-14.5) H 11/04/18 05:26 MPV 9.1 fL (9.4-12.4) L 11/06/18 04:35 ESR 101 mm/hr (0-15) H 11/05/18 04:34 Sodium 134 mEq/L (136-145) L 11/05/18 04:34 Potassium 3.1 mEq/L (3.5-5.1) L 11/04/18 05:26 0.56 mg/dL (0.60-1.20) L 11/05/18 04:34 Glucose 113 mg/dL (70-105) H 11/06/18 04:35 276 (280-300) L 11/05/18 04:34 Calcium 8.2 mg/dL (8.6-10.3) L 11/05/18 04:34 108 mg/L (Less than 10) H 11/05/18 04:34 Consult Discharge Plan - Plan Referrals: Zenon Baxter DO [Primary Care Provider] -
--- NOTE | 2018-11-06 13:31 | Infectious Disease Consult ---
Infectious Disease-Consult - Encounter Date/Time Date of Encounter: 11/06/18 Time of Encounter: 13:25 - Data of Consult Patient: new to practice Reason for consult: Right elbow infection Consult date: 11/06/18 Requesting Physician: Claire Marshall Primary Care Provider: Zenon Baxter DO - HPI HPI: Ms. Deng is [id number] female with past medical history of GERD, hypertension, and right elbow dislocation status post right elbow ORIF 10/28/18. The patient was admitted to the hospital 10/24/18 for postop surgical site infection. We are consulted 11/06/18 for further workup and treatment recommendations for right elbow infection. Briefly, the patient is a right-hand dominant 47-year-old female with past medical history as stated above. The patient sustained a right elbow dislocation after a fall on 10/18/18 which was reduced in the ER. She went home and re-developed dislocation and was seen in the ortho clinic and had it reduced. She was noted to have an avulsion fracture on post-reduction x-ray and she was referred to Dr. Fall. She underwent a right elbow and treatment of acute dislocation with repair of lateral ulnar collateral ligament and application of hinged multiplanar internal fixator. Postop, she developed some incisional erythema and was placed on oral Levaquin on 11/01/18. She continued to have increased pain and redness and some drainage from the surgical site so she presented to the ER for evaluation. Upon arrival, the patient was tachycardic, she was afebrile and otherwise hemodynamically stable. WBC was normal. Renal function lactic acid were normal. She had a right elbow x-ray that showed soft tissue swelling but no acute osseous abnormality. CT of the right upper extremity that showed an 11.9 x 3.5 x 2.4 cm area of confluent edema versus developing fluid collection in the posterior medial subcutaneous fat with an abscess not excluded. Adjacent fat stranding compatible with cellulitis versus sterile edema was also noted. Blood cultures were obtained 2 sets. She had a wound culture that is positive for MSSA. She underwent a left upper extremity DVT study that was negative. She was started empirically on IV antibiotics and was admitted to the hospital for further evaluation and treatment. Since admission, the patient has been evaluated by orthopedics. She was taken to the operating room 11/04/18 and underwent a right elbow I&D of postop wound. Operative note reflects that there was copious amount of fresh blood and hematoma within the wound with a small patch of dirty brown fluid. Intra- operative cultures were obtained and are pending and the previously placed hardware was left intact. Stop, the patient has remained afebrile and hemodynamically stable. Currently, the patient is on IV vancomycin. We have been asked to evaluate and make further recommendations. During my exam today, the patient states that last Sunday she developed fevers, chills, and rigors. She reports generalized fatigue and malaise. Denies chest pain, shortness of breath, or cough. Reports chronic nausea and dizziness that are at baseline. Denies vomiting or constipation. Reports some loose stools after starting the Levaquin over the weekend, but none since admission. She denies oral thrush or skin rashes. States she had posterior elbow pain and d eveloped purulent/bloody drainage from the surgical site on Sunday. States she feels much better since surgery. The patient lives at home with her and son. She works at [employer] in the [employer] room, but has been off work for a few months due to some dizziness and nausea issues. She denies tobacco, alcohol, or illicit drug use. Denies chronic infectious diseases. Denies recent travel. Reports she has two dogs and a cat, but denies bites or scratches. - ROS Review of Systems: All systems reviewed and no additional remarkable complaints except as stated. - Results CBC & Chem 7: 11/06/18 04:35 11/06/18 04:35 - Exam Vitals: Temp Pulse Resp BP Pulse Ox 97.9 F 86 16 126/83 96 11/06/18 11:05 11/06/18 11:05 11/06/18 11:05 11/06/18 11:05 11/06/18 11:05 Exam: Head: Atraumatic, normal inspection, normocephalic. Eye: EOMI, PERRLA, no scleral icterus noted. ENT: Mucous membranes moist. No odontogenic infection noted. Neck: Normal inspection, no meningismus. Respiratory: Clear to auscultation. No rales, respiratory distress, rhonchi, or wheezes noted. Cardiovascular: Regular rate and rhythm, S1 and S2 audible. No murmurs, rubs, or gallops. GI: Soft, nondistended, normal bowel sounds. Extremities:No joint swelling, pedal edema, or tenderness noted. Right UE dressing/splint C/D/I. Hemovac drain with cloudy/bloody drainage noted. + M/S to the distal extremity. Back: Normal inspection. No vertebral tenderness noted. Neurological: Alert, oriented 3, no focal deficits. Psychiatric: normal affect, normal mood. Skin: Dry, intact, warm. Normal color. No rashes. FLUoxetine HCl [Prozac] 20 mg PO DAILY 10/24/17 [History] Losartan/Hydrochlorothiazide [Losartan-Hctz 100-25 mg Tab] 1 tab PO DAILY 10/03/18 [History] Pantoprazole Sodium [Protonix] 20 mg PO BID 10/03/18 [History] Promethazine [Phenergan] 12.5 mg PO Q12HR PRN 10/03/18 [History] Cyanocobalamin (B-12) [Vitamin B12] 1,000 mcg IM WE 10/18/18 [History] Bifidobacterium Infantis [Align] 4 mg PO QAM 10/25/18 [History] HYDROcodone/Acet 5/325 mg [[place] 5-325 mg] 1 tab PO Q4H PRN 10/25/18 [History] Norgestimate-Ethinyl Estradiol [Norg-Ee 0.18-0.215-0.25/0.035] 1 tab PO DAILY 10/25/18 [History] Hyoscyamine Sulfate 0.125 mg PO Q6H PRN 11/04/18 [History] Ibuprofen [Motrin] 600 mg PO Q6H PRN 11/04/18 [History] Oxycodone HCl 5 mg PO Q6H PRN 11/04/18 [History] Scopolamine Patch [Transderm-Scop] 1.5 mg TD Q72H PRN 11/04/18 [History] ceFAZolin [Ancef] 2,000 mg IV Q8H 42 Days vial 11/07/18 [Rx] Allergy/AdvReac Type Severity Reaction Status Date / Time No Known Allergies Allergy Verified 11/04/18 16:48 - Assessment and Plan (1) Abscess of right upper extremity Status: Acute Location: Right elbow. Causative organism: MSSA. We secondary to surgical wound infection. X-ray of the right elbow showed soft tissue swelling, but no acute osseous abnormality. CT of the right upper extremity showed findings concerning for possible abscess. Preop swab culture of the surgical site is positive for MSSA. Pre-op ESR 114, CRP 172. Orthopedics is consulted. Status post right elbow I&D of post-op wound 11/04/[address] Fall. Intraoperative cultures are pending, but the Gram stain is positive for GPC's. Currently on Vancomycin. SNOMED Code(s): 01049939789070517 (2) Postoperative infection Status: Acute Location: Right elbow. Causative organism: MSSA. Failed outpatient oral antibiotics. Ortho consulted and following. Status post I & D 11/04/[address] Fall. Currently on IV Vancomycin. Qualifiers: Encounter type: initial encounter Postoperative infection type: unspecified type Qualified Code(s): T81.40XA - Infection following a procedure, unspecified, initial encounter SNOMED Code(s): 89998411 (3) Depressed Status: Chronic Qualifiers: Depression Type: unspecified Qualified Code(s): F32.9 - Major depressive disorder, single episode, unspecified SNOMED Code(s): 18876174 (4) Hypertension Status: Chronic Qualifiers: Hypertension type: essential hypertension Qualified Code(s): I10 - Essential (primary) hypertension SNOMED Code(s): 25550168 (5) History of open reduction and internal fixation (ORIF) procedure Status: Acute Status post right elbow open treatment of dislocation with repair of lateral ulnar collateral ligament and application of a hinged multiplanar internal fixator 10/25/[address] Fall. SNOMED Code(s): 915519740 - Recommendations Recommendations: Await blood cultures to finalize. Await intraoperative cultures to finalize. Wound culture and activity per the orthopedics team. Discontinue vancomycin. Start cefazolin 2 g IV every 8 hours. Duration of treatment depends on the clinical picture, but likely 4-6 weeks of IV antibiotics. Monitor renal function and dose adjust antibiotics. Past Med Surg Social Fam HX - Past Medical History Medical history: GERD, hypertension, other Additional medical history: dizziness, chronic nausea, Vitamin B12 deficiency Psychiatric history: anxiety, depression - Past Surgical History Surgical History: cholecystectomy Additional surgical history: cholangogram, right elbow surgery - Social History Smoking Status: Never smoker Smokeless Tobacco Status: No Alcohol use: occasionally Drug use: none Consult Discharge Plan - Plan Instructions: Cefazolin (Injection), Open Reduction and Internal Fixation of an Elbow Fracture in Children (DC), Elbow Fracture in Adults (DC) Referrals: Marilee Gurrola, PAC [Physician [employer] Operator] - 11/11/18 9:45 am Wilda Schofield, [employer] [Advanced Practice Nurse] - 11/26/18 3:40 pm Prescriptions: ceFAZolin [Ancef] 2,000 mg IV Q8H 42 Days vial - Attending Attestation I have personally performed a face to face evaluation on this patient. I have reviewed and agree with the care plan. History and Exam by me shows: This is an addendum to original report dictated by Wilda Schofield CNP. Please refer to Wilda's note for full detail. I agree with Wilda's history of present illness, review of system and physical exam findings. Assessment and plan: Abscess of the right upper extremity right elbow causative organism MSSA status post I&D of the elbow by Dr. Oscar 11/04/2018 Concern for osteomyelitis Dizziness and intractable nausea etiology not clear has been going on for months being followed by ENT and neurology Recommendations Await blood cultures to finalize. Await intraoperative cultures to finalize. Wound culture and activity per the orthopedics team. Discontinue vancomycin. Start cefazolin 2 g IV every 8 hours. Duration of treatment depends on the clinical picture, but likely 4-6 weeks of IV antibiotics. Monitor renal function and dose adjust antibiotics.
[2018-11-06] MEDS: Ondansetron 4 MG/2 ML VIAL IVP PRN (15:34)
[2018-11-06] MEDS: ceFAZolin 2,000 MG in 0.9 % Sodium Chloride 100 ML IVPB SCH ×2 (15:34→23:50)
[2018-11-06] MEDS ORDERED: Cyanocobalamin (B-12) 1,000 MCG/ML VIAL IM SCH ×2 (17:42)
[2018-11-07] MEDS: traMADol 50 MG TABLET PO PRN ×2 (06:45→20:32)
--- NOTE | 2018-11-07 08:33 | Internal Med Progress Note ---
Hospitalist Progress Note - Encounter Date of Encounter: 11/07/18 Time of Encounter: 09:00 - Subjective Interval History: No acute events overnight - Exam Vitals: Temp Pulse Resp BP Pulse Ox 97.8 F 81 16 144/80 95 11/07/18 08:03 11/07/18 08:03 11/07/18 08:03 11/07/18 08:03 11/07/18 08:03 Exam: PHYSICAL EXAMINATION: GENERAL APPEARANCE: The patient is alert, oriented and in no acute distress. HEENT: Head is normocephalic. The sinuses are nontender. Pupils are equal and reactive. The nares are patent. Oropharynx clear without lesions. NECK: Supple without lymphadenopathy. HEART: Regular rate and rhythm. LUNGS: No crackles or wheezes are heard. ABDOMEN: Soft, nontender, nondistended with good bowel sounds heard. Inguinal area is normal. EXTREMITIES: right upper arm covered with dressing. -Brisk capillary refill- extremities pink and warm NEUROLOGICAL: Gross nonfocal. SKIN: Warm and dry without any rash. - Assessment and Plan (1) Abscess of right upper extremity Current Visit: Yes Status: Acute Assessment and Plan: 47-year-old female with recent right upper arm, status post ORIF presented with right elbow abscess. Received IV Zosyn and vancomycin at the ED. Blood culture and wound culture were obtained. Continue vanc and zosyn. Final cultures came back for MSSA Plan for discharge on 6 weeks of cefazolin (2) Hypertension Current Visit: Yes Status: Chronic Assessment and Plan: Blood pressure well controlled, continue home medication. (3) Depressed Current Visit: Yes Status: Chronic Assessment and Plan: Mood stable, continue home medication. (4) DVT prophylaxis Current Visit: Yes Status: Acute Assessment and Plan: Heparin subcutaneous - Time Spent with Patient Total time spent is greater than 50% in coordination of care (as documented) at patient's floor/unit and/or counseling patient: Internal Medicine: Result - Labs CBC & Chem 7: 11/06/18 04:35 11/06/18 04:35 Consult Discharge Plan - Plan Referrals: Wilda Schofield CNP [Advanced Practice Nurse] - 11/26/18 3:40 pm Zenon Baxter DO [Primary Care Provider] - Prescriptions: ceFAZolin [Ancef] 2,000 mg IV Q8H 42 Days vial (2) Hypertension Qualifiers: Hypertension type: essential hypertension Qualified Code(s): I10 - Essential (primary) hypertension (3) Depressed Qualifiers: Depression Type: unspecified Qualified Code(s): F32.9 - Major depressive disorder, single episode, unspecified
[2018-11-07] MEDS: Losartan/HCTZ 50-12.5 TABLET PO SCH (08:36)
[2018-11-07] MEDS: Lactobacillus 1 EACH CAP.SPRINK PO SCH ×2 (08:36→20:25)
[2018-11-07] MEDS: FLUoxetine 20 MG CAPSULE PO SCH (08:36)
[2018-11-07] MEDS: NORGESTIMATE ETHINYL ESTRADIOL PO SCH (08:37)
[2018-11-07] MEDS: Ondansetron 4 MG/2 ML VIAL IVP PRN (08:37)
[2018-11-07] MEDS: *HR* HYDROcodone/Acet 5/325 mg TABLET PO PRN ×3 (08:37→23:42)
[2018-11-07] MEDS: ceFAZolin 2,000 MG in 0.9 % Sodium Chloride 100 ML IVPB SCH ×3 (08:44→23:35)
--- NOTE | 2018-11-07 11:02 | Infectious Disease Progress No ---
ID Progress Note Date of Encounter: 11/07/18 Time of Encounter: 10:55 - Subjective Subjective: Patient seen and examined. No acute events noted overnight. Patient states overall she feels well. Denies fevers, chills, or rigors. Denies chest pain, shortness of breath, or cough. Denies nausea, vomiting, diarrhea. Denies abdominal pain or urinary complaints. Denies oral thrush or skin rashes. Reports pain in the right elbow improved. - Objective CBC & Chem 7: 11/06/18 04:35 11/06/18 04:35 - Exam Vitals: Temp Pulse Resp BP Pulse Ox 97.8 F 81 16 144/80 95 11/07/18 08:03 11/07/18 08:03 11/07/18 08:03 11/07/18 08:03 11/07/18 08:03 Exam: Head: Atraumatic, normal inspection, normocephalic. Eye: EOMI, PERRLA, no scleral icterus noted. ENT: Mucous membranes moist. No odontogenic infection noted. Neck: Normal inspection, no meningismus. Respiratory: Clear to auscultation. No rales, respiratory distress, rhonchi, or wheezes noted. Cardiovascular: Regular rate and rhythm, S1 and S2 audible. No murmurs, rubs, or gallops. GI: Soft, nondistended, normal bowel sounds. Extremities:No joint swelling, pedal edema, or tenderness noted. Right UE dressing/splint C/D/I. Hemovac drain with cloudy/bloody drainage noted. + M/S to the distal extremity. Back: Normal inspection. No vertebral tenderness noted. Neurological: Alert, oriented 3, no focal deficits. Psychiatric: normal affect, normal mood. Skin: Dry, intact, warm. Normal color. No rashes. - Assessment and Plan (1) Abscess of right upper extremity Status: Acute Location: Right elbow. Causative organism: MSSA. We secondary to surgical wound infection. X-ray of the right elbow showed soft tissue swelling, but no acute osseous abnormality. CT of the right upper extremity showed findings concerning for possible abscess. Preop swab culture of the surgical site is positive for MSSA. Pre-op ESR 114, CRP 172. Orthopedics is consulted. Status post right elbow I&D of post-op wound 11/04/[address] Fall. Intraoperative cultures positive for MSSA. Currently on cefazolin. SNOMED Code(s): 33401677147085382 (2) Postoperative infection Status: Acute Location: Right elbow. Causative organism: MSSA. Failed outpatient oral antibiotics. Ortho consulted and following. Status post I & D 11/04/[address] Fall. Currently on IV cefrazolin. Qualifiers: Encounter type: initial encounter Postoperative infection type: unspecified type Qualified Code(s): T81.40XA - Infection following a procedure, unspecified, initial encounter SNOMED Code(s): 37363315 (3) Depressed Status: Chronic Qualifiers: Depression Type: unspecified Qualified Code(s): F32.9 - Major depressive disorder, single episode, unspecified SNOMED Code(s): 95822717 (4) Hypertension Status: Chronic Qualifiers: Hypertension type: essential hypertension Qualified Code(s): I10 - Essential (primary) hypertension SNOMED Code(s): 83699167 (5) History of open reduction and internal fixation (ORIF) procedure Status: Acute Status post right elbow open treatment of dislocation with repair of lateral ulnar collateral ligament and application of a hinged multiplanar internal fixator 10/25/[address] Fall. SNOMED Code(s): 896319094 - Recommendations Recommendations: Await blood cultures to finalize. Await intraoperative cultures to finalize. Wound culture and activity per the orthopedics team. Continue cefazolin 2 g IV every 8 hours. Start rifampin 300mg PO TID on discharge. Duration of treatment depends on the clinical picture, but likely 4-6 weeks of IV antibiotics. Monitor renal function and dose adjust antibiotics. manager support services to assist with discharge planning. Consult VAT for midline placement. Will need weekly CBC, BUN/Cr, ESR, CRP, LFTs. Will need weekly midline care per protocol. Follow up with ID 11/26/18 at 1540. Consult Discharge Plan - Plan Instructions: Cefazolin (Injection), Open Reduction and Internal Fixation of an Elbow Fracture in Children (DC), Elbow Fracture in Adults (DC) Referrals: Marilee Gurrola, PAC [Physician Director Medicaid] - 11/11/18 9:45 am Wilda Schofield, [employer] [Advanced Practice Nurse] - 11/26/18 3:40 pm Prescriptions: ceFAZolin [Ancef] 2,000 mg IV Q8H 42 Days vial - Attending Attestation I have personally performed a face to face evaluation on this patient. I have reviewed and agree with the care plan. History and Exam by me shows: Assessment and plan: 1.Abscess of the right upper extremity right elbow causative organism MSSA status post I&D of the elbow by Dr. Oscar 11/04/2018 2.Concern for osteomyelitis 3.Dizziness and intractable nausea etiology not clear has been going on for months being followed by ENT and neurology Recommendations Discontinue vancomycin. Start cefazolin 2 g IV every 8 hours. Duration of treatment depends on the clinical picture, but likely 4-6 weeks of IV antibiotics. add rifampin weeklyl cbc, cmp, esr and crp f/u with us in clinic in two weeks Monitor renal function and dose adjust antibiotics.
--- NOTE | 2018-11-07 14:37 | Orthopedics Progress Note ---
Date of Encounter: 11/07/18 Time of Encounter: 12:50 - Assessment and Plan (1) Postoperative infection Current Visit: Yes Status: Acute POD#3 s/p right elbow I&D 11/04 Hemovac drain - documented 70mL removed 11/05, 60ml removed on 11/06 and 45ml removed so far today 11/07. Discussed with Dr. Fall and again recommend leaving in an additional day as she has started working with therapy which could increase the drainage. Plan to remove tomorrow if drainage decreases Continue to elevate and ice as needed. Continue PT/OT for ROM as tolerated, continue NWB to RUE. Cx from ER show staph aureus, Intraoperatve cx just finalized to staph aureus There is internal hardware with plan to leave in place for 3 months. Appreciate ID recommendations for further antibiotic guidance She has been switched to cefazolin with plan for 4-6 weeks of treatment. Patient just received midline placement. 11/04: WBC 8.8, ESR 57, CRP 187 11/05: WBC 6.3, ESR 101, CRP 108 11/06: WBC 6.9 11/07: WBC 6.[address] Fall and he recommends she stay an additional night for observation and plan to remove hemovac drain tomorrow. Qualifiers: Encounter type: initial encounter Postoperative infection type: unspecified type Qualified Code(s): T81.40XA - Infection following a procedure, un specified, initial encounter Subjective Principal diagnosis: POD#3 s/p right elbow I&D 11/04 Interval history: Patient states she feels well today. She feels the elbow is still stiff but a little better than yesterday. She thinks she overdid it activity ayoub last night using arm a lot more and is now more sore but still tolerable. Denies numbness or tingling. Denies any new symptoms or concerns at this time. Objective Vital signs: Vital Signs Temp Pulse Resp BP Pulse Ox 11/07/18 11:39 98.1 F 78 14 143/78 95 11/07/18 08:03 97.8 F 81 16 144/80 95 11/07/18 03:55 98.2 F 77 16 119/74 97 11/06/18 19:33 97.6 F 104 17 147/92 97 Intake and Output 11/06/18 11/07/18 11/07/18 23:59 07:59 15:59 Intake Total 340 / 1180 100 / 200 100 / 200 Output Total 45 45 Balance 320 / 1120 100 / 155 55 / 155 Intake: IV Fluids 100 / 700 100 / 200 100 / 200 Ancef 2,000 MG In 0.9 % Sodium 100 / 100 100 / 200 100 / 200 Chloride 100 ML @ 200 mls/hr IVPB Q8HR RYAN Rx#:[id number] Oral 240 / 480 Output: Wound Drainage Right Elbow Other: Meal Dinner Percent of Meal Consumed 100% # Voids 1 Incision: clean and dry (dressings clean, dry, and intact. hemovac drain still in place with roughly 10cc dark bloody fluid noted. full motion of hand and wrist. elbow motion limited roughly 45-100 degrees. sensation intact distally, NV intact) - Labs CBC & BMP: 11/06/18 04:35 11/06/18 04:35 Labs: Abnormal lab results RBC 3.27 M/mcL (3.82-4.97) L 11/06/18 04:35 Hgb 9.4 g/dL (11.5-15.4) L 11/06/18 04:35 Hct 29.1 % (35.3-44.9) L 11/06/18 04:35 RDW 14.6 % (11.5-14.5) H 11/04/18 05:26 MPV 9.1 fL (9.4-12.4) L 11/06/18 04:35 ESR 101 mm/hr (0-15) H 11/05/18 04:34 Sodium 134 mEq/L (136-145) L 11/05/18 04:34 Potassium 3.1 mEq/L (3.5-5.1) L 11/04/18 05:26 0.56 mg/dL (0.60-1.20) L 11/05/18 04:34 Glucose 113 mg/dL (70-105) H 11/06/18 04:35 276 (280-300) L 11/05/18 04:34 Calcium 8.2 mg/dL (8.6-10.3) L 11/05/18 04:34 108 mg/L (Less than 10) H 11/05/18 04:34 Consult Discharge Plan - Plan Referrals: Wilda Schofield, SARA [Advanced Practice Nurse] - 11/26/18 3:40 pm Zenon Baxter DO [Primary Care Provider] - Prescriptions: ceFAZolin [Ancef] 2,000 mg IV Q8H 42 Days vial
[2018-11-08 03:20] VITALS: BP 120/70
[2018-11-08] MEDS: traMADol 50 MG TABLET PO PRN (04:35)
[2018-11-08] MEDS: Lactobacillus 1 EACH CAP.SPRINK PO SCH (08:38)
[2018-11-08] MEDS: FLUoxetine 20 MG CAPSULE PO SCH (08:38)
[2018-11-08] MEDS: NORGESTIMATE ETHINYL ESTRADIOL PO SCH (08:39)
[2018-11-08] MEDS: Ondansetron 4 MG/2 ML VIAL IVP PRN (08:39)
[2018-11-08] MEDS: Losartan/HCTZ 50-12.5 TABLET PO SCH (08:39)
[2018-11-08] MEDS: ceFAZolin 2,000 MG in 0.9 % Sodium Chloride 100 ML IVPB SCH (08:44)
[2018-11-08] MEDS: *HR* HYDROcodone/Acet 5/325 mg TABLET PO PRN (08:44)
--- NOTE | 2018-11-08 09:02 | Discharge Summary ---
Date of Encounter: 11/08/18 Time of Encounter: 11:00 - Discharge Diagnosis (1) Abscess of right upper extremity Priority: Primary Status: Acute Assessment and Plan: 47 year old female with past medical history of hypertension, depression, vitamin B12 deficiency, and recent right elbow trauma/fracture status post open reduction internal fixation presented with right upper arm swelling with yellowish drainage. She suffered a mechanical fall about 4 days ago which resulted in right arm fracture. She underwent an open reduction with internal fixation by orthopedic surgery and then was discharged home with oral antibiotics Levaquin. Patient noticed that her right elbow was getting progressively swelling and is starting to have yellowish drainage today, orthopedics was called by patient and his she was instructed to go to the ER for further evaluation. In the ER, patient vital signs were stable, she was afebrile, labs were unremarkable. A CT of right upper arm showed a possible abscess, she received IV Zosyn and vancomycin. She was assessed with infected elbow abscess post surgery . She was started on vanc and zosyn and seen by orthopedic surgery. She had abscess drainage done by ortho on . Wound cultures grew MSSA and she is being discharged on a 6 week course of cefazolin. 35 minutes was spent discharging this patient (2) Hypertension Priority: Primary Status: Chronic Qualifiers: Hypertension type: essential hypertension Qualified Code(s): I10 - Essential (primary) hypertension (3) Depressed Priority: Primary Status: Chronic Qualifiers: Depression Type: unspecified Qualified Code(s): F32.9 - Major depressive disorder, single episode, unspecified (4) DVT prophylaxis Priority: Primary Status: Acute Hospital course: Ms. Deng is a 47 year old female - Time Spent with Patient Total time spent providing and/or coordinating discharge services: - Discharge Medications Prescriptions: New ceFAZolin [Ancef] 2,000 mg IV Q8H 42 Days vial Continued FLUoxetine HCl [Prozac] 20 mg PO DAILY Losartan/Hydrochlorothiazide [Losartan-Hctz 100-25 mg Tab] 1 tab PO DAILY Pantoprazole Sodium [Protonix] 20 mg PO BID Promethazine [Phenergan] 12.5 mg PO Q12HR PRN PRN Reason: Nausea Bifidobacterium Infantis [Align] 4 mg PO QAM HYDROcodone/Acet 5/325 mg [[place] 5-325 mg] 1 tab PO Q4H PRN PRN Reason: Pain Norgestimate-Ethinyl Estradiol [Norg-Ee 0.18-0.215-0.25/0.035] 1 tab PO DAILY Hyoscyamine Sulfate 0.125 mg PO Q6H PRN PRN Reason: ABDOMINAL CRAMPS Ibuprofen [Motrin] 600 mg PO Q6H PRN PRN Reason: Pain Oxycodone HCl 5 mg PO Q6H PRN PRN Reason: Pain Scopolamine Patch [Transderm-Scop] 1.5 mg TD Q72H PRN PRN Reason: Dizziness Cyanocobalamin (B-12) [Vitamin B12] 1,000 mcg IM WE Discontinued levoFLOXacin [Levaquin] 500 mg PO DAILY Home Medications: FLUoxetine HCl [Prozac] 20 mg PO DAILY 10/24/17 [History] Losartan/Hydrochlorothiazide [Losartan-Hctz 100-25 mg Tab] 1 tab PO DAILY 10/03/18 [History] Pantoprazole Sodium [Protonix] 20 mg PO BID 10/03/18 [History] Promethazine [Phenergan] 12.5 mg PO Q12HR PRN 10/03/18 [History] Cyanocobalamin (B-12) [Vitamin B12] 1,000 mcg IM WE 10/18/18 [History] Bifidobacterium Infantis [Align] 4 mg PO QAM 10/25/18 [History] HYDROcodone/Acet 5/325 mg [[place] 5-325 mg] 1 tab PO Q4H PRN 10/25/18 [History] Norgestimate-Ethinyl Estradiol [Norg-Ee 0.18-0.215-0.25/0.035] 1 tab PO DAILY 10/25/18 [History] Hyoscyamine Sulfate 0.125 mg PO Q6H PRN 11/04/18 [History] Ibuprofen [Motrin] 600 mg PO Q6H PRN 11/04/18 [History] Oxycodone HCl 5 mg PO Q6H PRN 11/04/18 [History] Scopolamine Patch [Transderm-Scop] 1.5 mg TD Q72H PRN 11/04/18 [History] ceFAZolin [Ancef] 2,000 mg IV Q8H 42 Days vial 11/07/18 [Rx] Allergies/Adverse Reactions: Allergy/AdvReac Type Severity Reaction Status Date / Time No Known Allergies Allergy Verified 11/04/18 16:48 Date of admission: 11/03/18 17:53 Primary care physician: Zenon Baxter DO Consults: 11/03/18 17:02 Consult to Orthopedic Surgery [CONS] Stat Consulting Provider: Dario Huerta Reason for Consult: right elbow abscess Time Notified: 17:03 Call Completed: Yes 11/05/18 10:44 Consult to Physical Therapy [CONS] Routine Comment: Evaluate, develop and implement POC Reason for Consult: limited ROM to R arm dt surgery Does patient have active BEDREST order?: No Is patient medically & hemodynamically stable?: Yes Patient assessed for mobility or mobilized this visit?: No 11/06/18 12:30 Consult to Infectious Diseases [CONS] Routine Consulting Provider: [facility] [place] Reason for Consult: right elbow infection, internal hardware Time Notified: 11:45 Call Completed: Yes 11/07/18 11:34 Consult to Invasive Line Access Team [CONS] Routine Reason for Consult: home atb Line Type: Midline - Constitutional Vitals: Temp Pulse Resp BP Pulse Ox 98.0 F 79 16 120/70 98 11/08/18 03:15 11/08/18 03:15 11/08/18 03:15 11/08/18 03:15 11/08/18 03:15 General appearance: Present: A&O X 3 Exam: PHYSICAL EXAMINATION: GENERAL APPEARANCE: The patient is alert, oriented and in no acute distress. HEENT: Head is normocephalic. The sinuses are nontender. Pupils are equal and reactive. The nares are patent. Oropharynx clear without lesions. NECK: Supple without lymphadenopathy. HEART: Regular rate and rhythm. LUNGS: No crackles or wheezes are heard. ABDOMEN: Soft, nontender, nondistended with good bowel sounds heard. Inguinal area is normal. EXTREMITIES: right upper arm covered with dressing. -Brisk capillary refill- extremities pink and warm NEUROLOGICAL: Gross nonfocal. SKIN: Warm and dry without any rash. - Patient Status Disposition: Home, Self-Care Condition: Good - Discharge Instructions Instructions: Cefazolin (Injection), Open Reduction and Internal Fixation of an Elbow Fracture in Children (DC), Elbow Fracture in Adults (DC) Follow Up With: Marilee Gurrola PAC [Physician Patient Advocate] - 11/11/18 9:45 am Wilda Schofield CNP [Advanced Practice Nurse] - 11/26/18 3:40 pm
--- NOTE | 2018-11-08 09:03 | Physician Discharge Referral ---
Home Health/Hosp Referral Info Transfer to: Home Health - Diagnosis (1) Abscess of right upper extremity Priority: Primary Status: Acute (2) Hypertension Priority: Primary Status: Chronic (3) Depressed Priority: Primary Status: Chronic (4) DVT prophylaxis Priority: Primary Status: Acute - Respiratory Orders Smoking Cessation: Smoking cessation has been advised. For more information, call the [place] Tobacco Quit Line at 0-512-RQAM-NOW. - Diet/Nutrition Diet/Nutrition Orders: Regular - Services Needed Following services are medically necessary services: Nursing, Home Health Aide, Physical Therapy, Home Infusion - Transfer Medications Prescriptions: ceFAZolin [Ancef] 2,000 mg IV Q8H 42 Days vial Home Medications: FLUoxetine HCl [Prozac] 20 mg PO DAILY 10/24/17 [History] Losartan/Hydrochlorothiazide [Losartan-Hctz 100-25 mg Tab] 1 tab PO DAILY 10/03/18 [History] Pantoprazole Sodium [Protonix] 20 mg PO BID 10/03/18 [History] Promethazine [Phenergan] 12.5 mg PO Q12HR PRN 10/03/18 [History] Cyanocobalamin (B-12) [Vitamin B12] 1,000 mcg IM WE 10/18/18 [History] Bifidobacterium Infantis [Align] 4 mg PO QAM 10/25/18 [History] HYDROcodone/Acet 5/325 mg [[place] 5-325 mg] 1 tab PO Q4H PRN 10/25/18 [History] Norgestimate-Ethinyl Estradiol [Norg-Ee 0.18-0.215-0.25/0.035] 1 tab PO DAILY 10/25/18 [History] Hyoscyamine Sulfate 0.125 mg PO Q6H PRN 11/04/18 [History] Ibuprofen [Motrin] 600 mg PO Q6H PRN 11/04/18 [History] Oxycodone HCl 5 mg PO Q6H PRN 11/04/18 [History] Scopolamine Patch [Transderm-Scop] 1.5 mg TD Q72H PRN 11/04/18 [History] ceFAZolin [Ancef] 2,000 mg IV Q8H 42 Days vial 11/07/18 [Rx] Allergies/Adverse Reactions: Allergy/AdvReac Type Severity Reaction Status Date / Time No Known Allergies Allergy Verified 11/04/18 16:48 Certification: Further, I certify that my clinical findings support that this patient is homebound (i.e. absences from home require considerable and taxing effort and are for medical reasons or anglican services or infrequently or short duration when for other reasons) because: Homebound Reason: Patient requires assistance of a person or device to safely leave home Attestation: My signature below is to certify that this patient is under my care and that I, or nurse practitioner, or a physician's accountant assistant working with me, has a [id number] encounter with this patient.
--- NOTE | 2018-11-08 11:07 | Infectious Disease Progress No ---
ID Progress Note Date of Encounter: 11/08/18 Time of Encounter: 10:45 - Subjective Subjective: Patient seen and examined. No acute events noted overnight. Patient states overall she feels well and is ready to go home. Denies fevers, chills, or rigors. Denies chest pain, shortness of breath, or cough. Denies vomiting, diarrhea, or constipation. Reports nausea this morning, which is chronic. Denies abdominal pain or urinary complaints. Denies oral thrush or skin rashes. Reports pain in the right elbow improved. - Objective CBC & Chem 7: 11/06/18 04:35 11/06/18 04:35 - Exam Vitals: Temp Pulse Resp BP Pulse Ox 98.0 F 79 16 120/70 98 11/08/18 03:15 11/08/18 03:15 11/08/18 03:15 11/08/18 03:15 11/08/18 03:15 Exam: Head: Atraumatic, normal inspection, normocephalic. Eye: EOMI, PERRLA, no scleral icterus noted. ENT: Mucous membranes moist. No odontogenic infection noted. Neck: Normal inspection, no meningismus. Respiratory: Clear to auscultation. No rales, respiratory distress, rhonchi, or wheezes noted. Cardiovascular: Regular rate and rhythm, S1 and S2 audible. No murmurs, rubs, or gallops. GI: Soft, nondistended, normal bowel sounds. Extremities:No joint swelling, pedal edema, or tenderness noted. Right UE dressing/splint C/D/I. Hemovac drain with cloudy/bloody drainage noted. + M/S to the distal extremity. Neurological: Alert, oriented 3, no focal deficits. Psychiatric: normal affect, normal mood. Skin: Dry, intact, warm. Normal color. No rashes. - Assessment and Plan (1) Abscess of right upper extremity Current Visit: Yes Status: Acute Location: Right elbow. Causative organism: MSSA. We secondary to surgical wound infection. X-ray of the right elbow showed soft tissue swelling, but no acute osseous abnormality. CT of the right upper extremity showed findings concerning for possible abscess. Preop swab culture of the surgical site is positive for MSSA. Pre-op ESR 114, CRP 172. Orthopedics is consulted. Status post right elbow I&D of post-op wound 6/17/[address] Fall. Intraoperative cultures positive for MSSA. Currently on cefazolin. SNOMED Code(s): 97117612618750621 (2) Postoperative infection Current Visit: Yes Status: Acute Location: Right elbow. Causative organism: MSSA. Failed outpatient oral antibiotics. Ortho consulted and following. Status post I & D 11/04/[address] Fall. Currently on IV cefrazolin. Qualifiers: Encounter type: initial encounter Postoperative infection type: unspecified type Qualified Code(s): T81.40XA - Infection following a procedure, unspecified, initial encounter SNOMED Code(s): 40551201 (3) Depressed Current Visit: Yes Status: Chronic Qualifiers: Depression Type: unspecified Qualified Code(s): F32.9 - Major depressive disorder, single episode, unspecified SNOMED Code(s): 76976765 (4) Hypertension Current Visit: Yes Status: Chronic Qualifiers: Hypertension type: essential hypertension Qualified Code(s): I10 - Essential (primary) hypertension SNOMED Code(s): 64750512 (5) History of open reduction and internal fixation (ORIF) procedure Current Visit: Yes Status: Acute Status post right elbow open treatment of dislocation with repair of lateral ulnar collateral ligament and application of a hinged multiplanar internal fixator 10/25/[address] Fall. SNOMED Code(s): 944933612 - Recommendations Recommendations: Await blood cultures to finalize. Await intraoperative cultures to finalize. Wound care and activity per the orthopedics team. Continue cefazolin 2 g IV every 8 hours. Start rifampin 300mg PO TID on discharge. Duration of treatment depends on the clinical picture, but likely 4-6 weeks of IV antibiotics. Monitor renal function and dose adjust antibiotics. consumer services advisor to assist with discharge planning. Consult VAT for midline placement. Will need weekly CBC, BUN/Cr, ESR, CRP, LFTs. Will need weekly midline care per protocol. Follow up with ID 11/26/18 at 1540. Consult Discharge Plan - Plan Instructions: Cefazolin (Injection), Open Reduction and Internal Fixation of an Elbow Fracture in Children (DC), Elbow Fracture in Adults (DC) Referrals: Marilee Gurrola, PAC [Physician Sheep Or Calf Grader] - 11/11/18 9:45 am Wilda Schofield CNP [Advanced Practice Nurse] - 11/26/18 3:40 pm Prescriptions: ceFAZolin [Ancef] 2,000 mg IV Q8H 42 Days vial
--- NOTE | 2018-11-08 17:05 | Orthopedics Progress Note ---
Date of Encounter: 11/08/18 Time of Encounter: 11:45 - Assessment and Plan (1) Postoperative infection Status: Acute POD#3 s/p right elbow I&D 11/04 Hemovac drain - documented 70mL removed 11/05, 60ml removed on 11/06, 45ml removed 11/07. Another 40ml removed overnight and currently 10ml still inside vacuum. removed drain without complication. Pressure dressing applied. Patient instructed to begin daily wound care cleansing with soap/water daily but do not submerge in water. The apply pressure dressings with dry gauze/abd pads and KOBY wrap. Continue to elevate and ice as needed. Continue PT/OT for ROM as tolerated, continue NWB to RUE. She has script for formal outpatient therapy and will call today to schedule for next week. Intraoperative cx - staph aureus There is internal hardware with plan to leave in place for 3 months. Appreciate ID recommendations for further antibiotic guidance Plan for cefazolin 2gIV q 8hrs and rifampin 300mg PO TID with plan for 4-6 weeks of treatment. Patient has midline placement and ID will follow along for management. 11/04: WBC 8.8, ESR 57, CRP 187 11/05: WBC 6.3, ESR 101, CRP 108 11/06: WBC 6.9 11/07: WBC 6.9 11/08: ESR 73, CRP 52 much improved She will DC home today and plan to follow up in [facility] office in 1 week. Qualifiers: Encounter type: initial encounter Postoperative infection type: unspecified type Qualified Code(s): T81.40XA - Infection following a procedure, unspecified, initial encounter Subjective Principal diagnosis: POD#4 s/p right elbow I&D 11/04 Interval history: Patient states she feels well today. Pain continues to improve and states doesnt feel as stiff. She is working on exercises given by therapist. Denies any new symptoms or concerns at this time. Objective Vital signs: Vital Signs Temp Pulse Resp BP Pulse Ox 11/08/18 03:15 98.0 F 79 16 120/70 98 11/07/18 19:15 98.2 F 81 16 142/82 95 Intake and Output 11/08/18 11/08/18 11/08/18 07:59 15:59 23:59 Intake Total 100 / 460 360 / 460 Output Total 40 / 40 Balance 60 / 420 360 / 420 Intake: IV Fluids 100 / 100 Ancef 2,000 MG In 0.9 % Sodium 100 / 100 Chloride 100 ML @ 200 mls/hr IVPB Q8HR [facility] Rx#:[id number] Oral Output: Wound Drainage Right Elbow 40 Other: Meal Breakfast Percent of Meal Consumed 100% # Voids 1 Incision: swollen (postop dressings removed. incision healing appropriately with no erythema or drainage. sutures intact. mild swelling, no palpable fluctuance. mild tenderness to palpation. hemovac drain in place with roughly 10ml inside. e lbow motion 45-100 degrees. full wrist/hand motion. sensation intact distally.) - Labs CBC & BMP: 11/06/18 04:35 11/06/18 04:35 Labs: Abnormal lab results RBC 3.27 M/mcL (3.82-4.97) L 11/06/18 04:35 Hgb 9.4 g/dL (11.5-15.4) L 11/06/18 04:35 Hct 29.1 % (35.3-44.9) L 11/06/18 04:35 RDW 14.6 % (11.5-14.5) H 11/04/18 05:26 MPV 9.1 fL (9.4-12.4) L 11/06/18 04:35 ESR 73 mm/hr (0-15) H 11/08/18 04:15 Sodium 134 mEq/L (136-145) L 11/05/18 04:34 Potassium 3.1 mEq/L (3.5-5.1) L 11/04/18 05:26 0.56 mg/dL (0.60-1.20) L 11/05/18 04:34 Glucose 113 mg/dL (70-105) H 11/06/18 04:35 276 (280-300) L 11/05/18 04:34 Calcium 8.2 mg/dL (8.6-10.3) L 11/05/18 04:34 52 mg/L (Less than 10) H 11/08/18 04:15 Consult Discharge Plan - Plan Instructions: Cefazolin (Injection), Open Reduction and Internal Fixation of an Elbow Fracture in Children (DC), Elbow Fracture in Adults (DC) Referrals: Marilee Gurrola, DONNELL [Physician Fence Laborer] - 11/11/18 9:45 am Wilda Schofield CNP [Advanced Practice Nurse] - 11/26/18 3:40 pm Prescriptions: ceFAZolin [Ancef] 2,000 mg IV Q8H 42 Days vial
== END 2018-11-08 12:14 | disposition home or self-care (01) | DRG 857 ==
LOC: EMEROOARM 15:07 → 3ANU 17:53
PROVIDERS: ADMIT Internal Medicine Nephrology; ATTEND Internal Medicine Nephrology